=== PATIENT | male | born 1950 | race Caucasian/White ===

== ENCOUNTER → 2022-08-27 12:52 | Outpatient (REF) | payer OTHER, SELFPAY | LOC: WOUND 12:52 | PROVIDERS: ATTENDING PHYSICIAN Surgery; REFERRING PHYSICIAN Family Medicine | DX: T81.31XA Disruption of external operation (surgical) wound, not elsewhere classified, initial encounter (principal); L97.812 Non-pressure chronic ulcer of other part of right lower leg with fat layer exposed; I73.9 Peripheral vascular disease, unspecified; F17.210 Nicotine dependence, cigarettes, uncomplicated; M27.2 Inflammatory conditions of jaws; F10.11 Alcohol abuse, in remission; I10 Essential (primary) hypertension; Y83.8 Other surgical procedures as the cause of abnormal reaction of the patient, or of later complication, without mention of misadventure at the time of the procedure | CPT/HCPCS: 11042; 97597 ==

== ENCOUNTER → 2022-09-10 12:53 | Outpatient (REF) | payer OTHER, SELFPAY | LOC: WOUND 12:53 | PROVIDERS: ATTENDING PHYSICIAN Surgery; REFERRING PHYSICIAN Family Medicine | DX: T81.31XA Disruption of external operation (surgical) wound, not elsewhere classified, initial encounter (principal); L97.812 Non-pressure chronic ulcer of other part of right lower leg with fat layer exposed; I73.9 Peripheral vascular disease, unspecified; Y83.8 Other surgical procedures as the cause of abnormal reaction of the patient, or of later complication, without mention of misadventure at the time of the procedure; F17.210 Nicotine dependence, cigarettes, uncomplicated; M27.2 Inflammatory conditions of jaws; F10.11 Alcohol abuse, in remission; I10 Essential (primary) hypertension | CPT/HCPCS: 11042; 11045; 97597 ==

== ENCOUNTER → 2022-10-08 13:07 | Outpatient (REF) | payer OTHER, SELFPAY | LOC: WOUND 13:07 | PROVIDERS: ATTENDING PHYSICIAN Surgery; REFERRING PHYSICIAN Family Medicine | DX: T81.31XA Disruption of external operation (surgical) wound, not elsewhere classified, initial encounter (principal); L97.812 Non-pressure chronic ulcer of other part of right lower leg with fat layer exposed; I73.9 Peripheral vascular disease, unspecified; F17.210 Nicotine dependence, cigarettes, uncomplicated; M27.2 Inflammatory conditions of jaws; F10.11 Alcohol abuse, in remission; I10 Essential (primary) hypertension | CPT/HCPCS: 97597; 97598 ==

== ENCOUNTER → 2022-11-05 11:00 | Outpatient (REF) | payer OTHER, SELFPAY | LOC: WOUND 11:00 | PROVIDERS: ATTENDING PHYSICIAN Surgery; REFERRING PHYSICIAN Family Medicine | DX: T81.31XS Disruption of external operation (surgical) wound, not elsewhere classified, sequela (principal); L97.812 Non-pressure chronic ulcer of other part of right lower leg with fat layer exposed; I73.9 Peripheral vascular disease, unspecified; F17.210 Nicotine dependence, cigarettes, uncomplicated; M27.2 Inflammatory conditions of jaws; F10.11 Alcohol abuse, in remission; I10 Essential (primary) hypertension; X58.XXXA Exposure to other specified factors, initial encounter | CPT/HCPCS: 11042; 11045 ==

== ENCOUNTER → 2022-11-18 12:17 | Outpatient (REF) | payer OTHER, SELFPAY | LOC: WOUND 12:17 | PROVIDERS: ATTENDING PHYSICIAN Surgery; REFERRING PHYSICIAN Family Medicine | DX: T81.31XA Disruption of external operation (surgical) wound, not elsewhere classified, initial encounter (principal); L97.812 Non-pressure chronic ulcer of other part of right lower leg with fat layer exposed; I73.9 Peripheral vascular disease, unspecified; F17.210 Nicotine dependence, cigarettes, uncomplicated; M27.2 Inflammatory conditions of jaws; F10.11 Alcohol abuse, in remission; I10 Essential (primary) hypertension; X58.XXXA Exposure to other specified factors, initial encounter | CPT/HCPCS: 11042; 11045 ==

== ENCOUNTER → 2023-02-11 11:59 | Outpatient (REF) | payer OTHER, SELFPAY | LOC: WOUND 11:59 | PROVIDERS: ATTENDING PHYSICIAN Surgery; REFERRING PHYSICIAN Family Medicine | DX: T81.31XA Disruption of external operation (surgical) wound, not elsewhere classified, initial encounter (principal); L97.812 Non-pressure chronic ulcer of other part of right lower leg with fat layer exposed; I73.9 Peripheral vascular disease, unspecified; F17.210 Nicotine dependence, cigarettes, uncomplicated; I10 Essential (primary) hypertension; I87.2 Venous insufficiency (chronic) (peripheral); F10.11 Alcohol abuse, in remission; Y83.8 Other surgical procedures as the cause of abnormal reaction of the patient, or of later complication, without mention of misadventure at the time of the procedure | CPT/HCPCS: 11042; 11045 ==

== ENCOUNTER → 2023-03-17 10:55 | Outpatient (REF) | payer OTHER, SELFPAY | LOC: WOUND 10:55 | PROVIDERS: ATTENDING PHYSICIAN Surgery; REFERRING PHYSICIAN Family Medicine | DX: T81.31XS Disruption of external operation (surgical) wound, not elsewhere classified, sequela (principal); L97.812 Non-pressure chronic ulcer of other part of right lower leg with fat layer exposed; I73.9 Peripheral vascular disease, unspecified; F17.210 Nicotine dependence, cigarettes, uncomplicated; M27.2 Inflammatory conditions of jaws; I10 Essential (primary) hypertension; I87.2 Venous insufficiency (chronic) (peripheral); X58.XXXA Exposure to other specified factors, initial encounter | CPT/HCPCS: 11042; 11045 ==

== ENCOUNTER → 2023-03-31 10:55 | Outpatient (REF) | payer OTHER, SELFPAY | LOC: WOUND 10:55 | PROVIDERS: ATTENDING PHYSICIAN Surgery; FAMILY PHYSICIAN Family Medicine | DX: T81.31XA Disruption of external operation (surgical) wound, not elsewhere classified, initial encounter (principal); L97.812 Non-pressure chronic ulcer of other part of right lower leg with fat layer exposed; I73.9 Peripheral vascular disease, unspecified; F17.210 Nicotine dependence, cigarettes, uncomplicated; M27.2 Inflammatory conditions of jaws; F10.11 Alcohol abuse, in remission; I10 Essential (primary) hypertension; I87.2 Venous insufficiency (chronic) (peripheral); X58.XXXA Exposure to other specified factors, initial encounter | CPT/HCPCS: 99213 ==

== ENCOUNTER → 2023-04-14 11:04 | Outpatient (REF) | payer OTHER, SELFPAY | LOC: WOUND 11:04 | PROVIDERS: ATTENDING PHYSICIAN Surgery; FAMILY PHYSICIAN Family Medicine | DX: T81.31XA Disruption of external operation (surgical) wound, not elsewhere classified, initial encounter (principal); L97.812 Non-pressure chronic ulcer of other part of right lower leg with fat layer exposed; I73.9 Peripheral vascular disease, unspecified; M27.2 Inflammatory conditions of jaws; I10 Essential (primary) hypertension; I87.2 Venous insufficiency (chronic) (peripheral); X58.XXXA Exposure to other specified factors, initial encounter; F17.210 Nicotine dependence, cigarettes, uncomplicated; F10.11 Alcohol abuse, in remission | CPT/HCPCS: 11042; 11045; 87070; 87075; 87147; 87186; 87205; 99406 ==

== ENCOUNTER → 2023-04-21 11:02 | Outpatient (REF) | payer OTHER, SELFPAY | LOC: WOUND 11:02 | PROVIDERS: ATTENDING PHYSICIAN Surgery; FAMILY PHYSICIAN Family Medicine | DX: T81.31XA Disruption of external operation (surgical) wound, not elsewhere classified, initial encounter (principal); L97.812 Non-pressure chronic ulcer of other part of right lower leg with fat layer exposed; I73.9 Peripheral vascular disease, unspecified; L08.9 Local infection of the skin and subcutaneous tissue, unspecified; F17.210 Nicotine dependence, cigarettes, uncomplicated; M27.2 Inflammatory conditions of jaws; T14.8XXA Other injury of unspecified body region, initial encounter; F10.11 Alcohol abuse, in remission; I10 Essential (primary) hypertension; I87.2 Venous insufficiency (chronic) (peripheral); X58.XXXA Exposure to other specified factors, initial encounter | CPT/HCPCS: 99213 ==

== ENCOUNTER → 2023-04-28 11:05 | Outpatient (REF) | payer OTHER, SELFPAY | LOC: WOUND 11:05 | PROVIDERS: ATTENDING PHYSICIAN Surgery; FAMILY PHYSICIAN Family Medicine | DX: T81.31XA Disruption of external operation (surgical) wound, not elsewhere classified, initial encounter (principal); L97.812 Non-pressure chronic ulcer of other part of right lower leg with fat layer exposed; I73.9 Peripheral vascular disease, unspecified; L08.9 Local infection of the skin and subcutaneous tissue, unspecified; M27.2 Inflammatory conditions of jaws; T14.8XXA Other injury of unspecified body region, initial encounter; X58.XXXA Exposure to other specified factors, initial encounter; I10 Essential (primary) hypertension; I87.2 Venous insufficiency (chronic) (peripheral); F17.210 Nicotine dependence, cigarettes, uncomplicated; F10.11 Alcohol abuse, in remission | CPT/HCPCS: 99212 ==

== ENCOUNTER 2023-05-05 01:44 | Inpatient (IN) | payer OTHER, SELFPAY ==
[2023-05-04 19:38] VITALS: BP 111/69
[2023-05-04 19:45] VITALS: BP 111/69
[2023-05-04 19:47] VITALS: BMI 17.2
[2023-05-04 20:00] VITALS: BP 110/72
[2023-05-04 20:01] LABS: % Basophils 0.6 % (0-2); % Eosinophils 0.6 % (0-6); % Immature Granulocytes 0.4 % (0-0.5); % Lymphocytes 7.4 % (20.5-51.1); % Monocytes 7.1 % (1.7-9.3); % Neutrophils 83.9 % (42.2-75.2); Absolute Basophils 0.1 10^3/uL (0-0.2); Absolute Eosinophils 0.1 10^3/uL (0-0.7); Absolute Immature Granulocytes 0.1 10^3/uL (0-0.05); Absolute Lymphocytes 0.9 10^3/uL (1.2-3.4); Absolute Monocytes 0.9 10^3/uL (0.1-0.6); Hematocrit 33.4 % (39.0-52.0); Hemoglobin 11.1 g/dL (13.0-18.0); Mean Corp Hgb Conc. 33.2 g/dL (33.0-37.0); Mean Corpuscular Hgb 28.8 pg (27.0-31.0); Mean Corpuscular Volume 86.8 fL (80.0-94.0); Mean Platelet Volume 8.3 fL (7.4-10.4); Nucleated Red Blood Cells % 0 % (-); Platelet Count 733 10^3/uL (130-400); Red Blood Cell Count 3.85 10^6/uL (4.70-6.10); Red Cell Dist. Width 17.2 % (11.5-14.5)
[2023-05-04 20:10] LABS: ALT (SGPT) 22 U/L (0-50); AST (SGOT) 40 U/L (17-59); Albumin 3.6 g/dl (3.5-5.0); Alkaline Phosphatase 64 U/L (38-126); Blood Urea Nitrogen 41 mg/dl (9-20); Calcium 9.1 mg/dl (8.4-10.2); Carbon Dioxide 27 mmol/L (22-30); Chloride 93 mmol/L (98-107); Estimated Creatinine Clearance 52 ml/min; Glucose 109 mg/dl (70-99); Potassium 4.4 mmol/L (3.5-5.1); Sodium 130 mmol/L (135-145); Total Bilirubin 0.2 mg/dl (0.2-1.3); eGFR > 60.00
--- NOTE | 2023-05-04 21:54 | ED.GENMED ---
History of Present Illness
General
Chief Complaint: Jaw Pain
Time Seen by Provider: 05/04/23 21:05
Travel History
Have you had any contact with someone who has COVID-19?: No
Do you have any symptoms of coronavirus? Fever > 100 degrees, chills, cough, shortness of breath, sore throat, loss of taste or smell, muscle aches, or headache?: No
History of Present Illness
History of Present Illness:
72-year-old male with history of COPD and 'jaw cancer' presents to the emergency department for evaluation of numerous complaints. He apparently lives at home with his and his son, the patient states that they 'do not take care of me'. He
apparently called his daughter, with whom he has very little relationship, today requesting help and police became involved in the situation. He states he feels as though he cannot care for himself adequately at home and is requesting to go to
rehab. In triage the patient requested hospice care however he does not aware of what hospice care truly is. In regards to his jaw cancer he states he was treated at both [facility] with tumor excision and local
radiation, had bone grafting performed as well. Patient states he is followed up as recently as 6 months ago with [place] [facility] and informs me that he is disease-free (I have no records to confirm this). He is not currently undergoing any treatments
for his cancer. Overall he only takes medications for chronic pain. Does follow with outpatient wound care through this hospital for a chronic wound to the right lower extremity that he states is from his prior bone graft. He denies any pain or
infection concerns associated with this. Denies any fevers or chills. He does note that he has a persistent cough. States that he cannot eat due to severe pain in the jaw when chewing however denies any swallowing difficulties. Does typically
ambulate himself using a cane around his house and is seemingly independent in regards to activities of daily living
Past History
Past History
ED Past Medical History: Cancer, COPD, HTN, Hypercholesterolemia, Psychiatric (Generalized anxiety disorder) and Other (Arthritis, Ulcers)
ED Past Surgical History: Orthopedic (Knee replacement, spinal fusion)
Social History
Tobacco: Smoker
Alcohol: Daily
Drug: None
Personal:
Living: with family
Family History
Family History: CAD
Review of Systems
Review of Systems
Allergies reviewed?: Yes
All Other Systems: ROS reviewed and negative except as documented in HPI and ROS
Phy Exam
Physical Exam
Physical Exam:
GEN: Thin and frail appearing, cachectic
Eyes: PERRLA, EOMs intact, no scleral icterus
HENT: NCAT, oral mucosa dry; jaw abnormality secondary to prior surgery
Lungs: Coarse wet cough, rhonchi heard at the right base
Cardiac: Slightly tachycardic, regular
Abdomen: S, NT, ND, NABS, no masses or hepatosplenomegaly
Neuro: AO x 3
MSK: No gross deformity or ecchymosis. No edema. No digital clubbing
Skin: No rashes, petechiae. Normal color, no pallor or jaundice.
Psych: Calm, cooperative, proper hygiene
Course
Orders/Labs/Results
Orders:
Orders
05/04/23 19:50
Alcohol Urgent
Complete Blood Count/With Diff Urgent
Comprehensive Metabolic Panel Urgent
05/04/23 21:53
Add On- LAB Urgent
Tests Added?: alcohol
05/04/23 21:56
Lorazepam [Ativan] 1 mg PO NOW STA
05/04/23 23:20
Albuterol [ProAIR HFA INHALER] 2 puff INH R Q4HPRN PRN
CR Chest - 2 Views Urgent
Comment:
Reason For Exam: cough
05/05/23 00:06
0.9% Sodium Chloride 1000 ml [Nss] 1,000 ml IV BOLUS
Piperacillin/Tazo 3.375 Gram [Zosyn] 3.375 gram in 50 ml IV NOW
Speech Screening from Con Routine
05/05/23 00:58
Lactic Acid Urgent
Procalcitonin Urgent
PCT Algorithmm Indication: Respiratory
Blood Culture Q30M
JOSE Source: Blood/Venous
Specimen Description:
05/05/23 01:08
Admit/Transfer Patient As Directed
Co-Sign Provider:
Level of Care: Inpatient admission
Assign to:: Telemetry
Physician / Group: Lasha
Diagnosis: RLL Pneumonia
Reason for Telemetry: Arrhythmia
Date to Stop Telemetry: 05/08/23
Time to Stop Telemetry: 11:00
Reason for Hospitalization: RLL Pneumonia
Expected length of stay greater than two midnights?: Yes
ELOS- Estimated Length of Stay in days: 3
I certify the patient meets the requirements for IP care: Yes
05/05/23 01:09
Code Status As Directed
Resuscitation Status: Full Code
05/05/23 01:12
Blood Culture Q30M
JOSE Source: Blood/Venous
Specimen Description:
05/08/23 11:00
DC Protocol for Telemetry ONCE
Abnormal Lab Results
05/04/23
19:50
WBC 12.0 H 10^3/uL
(4.8-10.8)
RBC 3.85 L 10^6/uL
(4.70-6.10)
Hgb 11.1 L g/dL
(13.0-18.0)
Hct 33.4 L %
(39.0-52.0)
RDW 17.2 H %
(11.5-14.5)
Plt Count 733 H 10^3/uL
(130-400)
Abs Immat Gran (auto) 0.1 H 10^3/uL
(0-0.05)
Absolute Neuts (auto) 10.0 H 10^3/uL
(1.4-6.5)
Absolute Lymphs (auto) 0.9 L 10^3/uL
(1.2-3.4)
Absolute Monos (auto) 0.9 H 10^3/uL
(0.1-0.6)
Neutrophils % 83.9 H %
(42.2-75.2)
Lymphocytes % 7.4 L %
(20.5-51.1)
Sodium 130 L mmol/L
(135-145)
Chloride 93 L mmol/L
(98-107)
BUN 41 H mg/dl
(9-20)
Glucose 109 H mg/dl
(70-99)
05/04/23 19:50
05/04/23 19:50
Vital Signs
Initial and Last Documented VS:
Initial Vital Signs
Pulse Resp BP
103 14 111/69
05/04/23 19:38 05/04/23 19:38 05/04/23 19:38
Last Documented Vital Signs
Temp Pulse Resp BP Pulse Ox
97.7 F 105 19 117/74 94
05/04/23 19:45 05/04/23 22:00 05/04/23 22:00 05/05/23 01:11 05/05/23 01:11
MDM/Problems Addressed
MDM/Problems Addressed:
After lengthy discussion with the patient and his daughter regarding his lack of safety at home, I did agree to keep the patient in the hospital for case management and PT/OT evaluations. Ultimately on my evaluation I do not find that the patient
is profoundly malnourished or functionally deconditioned. He does not feel her thin but he is able to ambulate under his own power to the restroom and is able to feed himself and use the urinal without difficulty. Certainly do not feel that he
warrants rehab but could benefit from home physical therapy. He has noted to have a coarse wet cough on exam with right lower lobe rhonchi, follow-up chest x-ray does show right lower lobe density suggestive of pneumonia. Concerning for aspiration
in the context of the patient's difficulty with chewing and eating. Will admit for IV antibiotics
*Critical Care Note
Total Time (30-74mins, 75-104mins- exclusive of procedures): Not Applicable
ED Attending Note
-
Portions of this chart may have been created with voice recognition software.� Occasional wrong word or��sound alike� substitutions may have occurred due to the inherent limitations of voice recognition software.
Discharge Plan
Departure
Patient Disposition: Admit
Date of Disposition: 05/05/23
Time of Disposition: 00:26
Admit to: Med/Surg
Presentation/result/management discussed w/ accepting MD/DO: Hospitalist
Discharge Problem:
Right lower lobe pneumonia
Prescriptions:
No Action
morphine 15 MG tablet
7.5 - 15 mg PO Q4H PRN (Reason: severe pain)
Patient Comments:
05/04/23: last filled 04/02/23, 60 tabs for 10 days from [facility]
sennosides [Senna Laxative] 8.6 mg Tablet
8.6 mg PO DAILY
gabapentin 300 mg Capsule
300 mg PO TID
lorazepam 1 mg Tablet
1 mg PO BID PRN (Reason: anxiety)
Patient Comments:
05/04/2023: last filled 01/22/23, 60 tabs for 30 days from [facility]
morphine 30 mg tablet extended release
30 mg PO BID
Patient Comments:
05/04/2023: last filled 03/09/22, 60 tabs for 30 days from [facility]
sulfamethoxazole-trimethoprim 800-160 mg tablet
1 tab PO BID
hydromorphone 2 mg Tablet
2 mg PO Q6H PRN (Reason: wound vac mike)
Patient Comments:
05/04/2023: last filled 11/08/21, 5 tabs for 2 days from [facility]
hydroxyzine HCl 25 mg tablet
25 mg PO Q8H PRN (Reason: anxiety)
Referrals:
Werner Hansen MD [Family Provider] -
Interventions
Interventions:
*General Assessment Last Done: 05/04/23 23:34
*Neglect/Abuse Screening Last Done: 05/04/23 23:35
ED- Fall Risk Assessment Last Done: 05/04/23 19:49
*ED COVID-19 Vaccine History Last Done: 05/04/23 19:48
ED-EENT Assessment Last Done: 05/04/23 23:15
ED- Cardiac Assessment Last Done: 05/04/23 23:15
[2023-05-04 22:00] VITALS: BP 153/92
[2023-05-04 22:30] LABS: Alcohol 92 mg/dl
[2023-05-04] MEDS: ATIVAN 1 MG PO (22:37)
[2023-05-04 23:08] VITALS: BP 121/69
[2023-05-04 23:56] VITALS: BP 107/88
[2023-05-05] VITALS (10 sets, daily range): BP systolic 95–155; BP diastolic 70–104; PULSE 102–115; O2SAT 93; BMI 17.0
[2023-05-05] MEDS: ProAIR HFA INHALER 2 PUFF INH (00:01)
--- NOTE | 2023-05-05 01:13 | HPS.HSE ---
Family Physician
-
Family Physician: Werenr Hansen
Chief Complaint
-
Failure to Thrive
History of Present Illness
Patient is a 72y M with PMH significant for osteonecrosis of the jaw, ASCVD and COPD who presents to ED complaining of general failure to thrive. Patient currently lives at home with his and his adult son. He states that he cannot manage
at home. His is also ill with cancer. There is suspicion of prescription diversion. Patient presents this evening with feeling generally weak and fatigued. He has no specific complaints, but does have a largely positive review of systems.
Patient notes occasional difficulty swallowing and some coughing / choking when eating. He has occasional SOB and cough and notes that he has COPD. He denies any complaints.
He is followed by Wound Care at for a slowly healing RLE graft harvest site. He was recently started on Bactrim DS BID for this wound / associated cellulitis and notes that this 'tore me up' in regards to heartburn and GI distress.
Medical History
Past Medical History
Past Medical History: Reports Other
Additional Past Medical History:
ASCVD / PAD
Hypertension
Oral Cancer
Jaw Osteonecrosis
Chronic Pain Syndrome
Anxiety / Depression
COPD
Past Surgical History: Reports Other
Additional Past Surgical History:
Bilateral Knee Surgeries
Spinal Fusion
Oral Cancer Excision
Left Jaw Reconstruction
RLE Bone [place]
RLE Bypass
Social History
Tobacco: Smoker (Current every day smoker. 1/2 ppd. > 60 pack years total use.)
Alcohol: Occasional (Patient reports alcohol 1-2 times per week. Prior history of more frequent / higher volume alcohol use. Last drink 2 days ago per patient. Positive alcohol level this evening.)
Personal:
Living: With Family
Family History
Family History: Not pertinent
Allergies / Home Medications
Allergies reflects when Allergies were last updated in [employer].
Home Medications with original date entered in [employer]
Allergy/Medication List:
Allergies
Allergy/AdvReac Type Severity Reaction Status Date / Time
BALA Inhibitors Allergy upset Verified 05/04/23 19:48
[Bala Inhibitors] stomach
atorvastatin calcium Allergy upset Verified 05/04/23 19:48
[From Lipitor] stomach
lisinopril Allergy Rash Verified 05/04/23 19:48
Home Medications
morphine 15 mg immediate release tablet 7.5 - 15 mg PO Q4H PRN severe pain 06/15/20
gabapentin 300 mg capsule 300 mg PO TID Pain 09/09/21
sennosides 8.6 mg tablet (Senna Laxative) 8.6 mg PO DAILY 09/09/21
lorazepam 1 mg tablet 1 mg PO BID PRN anxiety 09/11/21
morphine 30 mg tablet,extended release 30 mg PO BID Pain 11/05/21
hydromorphone 2 mg tablet 2 mg PO Q6H PRN wound vac mike 05/04/23
hydroxyzine HCl 25 mg tablet 25 mg PO Q8H PRN anxiety 05/04/23
sulfamethoxazole 800 mg-trimethoprim 160 mg tablet 1 tab PO BID 05/04/23
Review of Systems
-
History Source: Patient
A 12 point ROS was completed and negative except as noted: Yes
Constitutional: Reports Fatigue; Denies Fever or Chills
EENT: Reports Sore Throat and Mouth Pain
Respiratory: Reports Cough and Trouble Breathing
Cardiac: Denies Chest Pain or Palpitations
Abdomen/GI: Reports Other (Heartburn.); Denies Abdominal Pain, Nausea, Vomiting or Diarrhea
: Denies Dysuria or Frequency
Musculoskeletal: Denies Joint Pain or Edema
Skin: Reports Other (RLE Wound)
Psych: Reports Depression; Denies Anxiety
Physical Exam
Vital Signs
Vital Signs
Temp Pulse Resp BP Pulse Ox
97.7 F 105 19 113/71 91
05/04/23 19:45 05/04/23 22:00 05/04/23 22:00 05/05/23 00:00 05/05/23 00:00
Physical Exam
General: Other (Frail, chronically ill-appearing 72y M in no acute distress.)
HEENT: Moist mucous membranes and Other (L mandible deformity s/p surgery.)
Respiratory: Other (Few coarse breath sounds at R base. No wheeze / rales.)
Cardiac: S1/S2 and Regular Rhythm; No Murmur
GI: Soft, Non Tender, Non Distended and Normal Bowel Sounds
Musculoskeletal: No Clubbing, No Cyanosis and No Edema
Skin: Other (Wound over lateral aspect of the R lower leg. Appears to be healing quite nicely without erythema, induration, bleeding, etc.)
Neuro: AO x 3
Laboratory Results
-
05/04/23 19:50
05/04/23 19:50
Laboratory Results
Total Bilirubin 0.2 mg/dl (0.2-1.3) 05/04/23 19:50
AST 40 U/L (17-59) 05/04/23 19:50
ALT 22 U/L (0-50) 05/04/23 19:50
Alkaline Phosphatase 64 U/L (38-126) 05/04/23 19:50
Impression/Plan
-
A/P: Patient is a 72y M with PMH significant for oral cancer, osteonecrosis of the jaw, COPD and PAD who presents to ED complaining of 'feeling worn down'.
RLL Pneumonia - Possible Aspiration
- Admit for further evaluation and treatment.
- Mild leukocytosis and abnormal lung sounds. Admitted aspiration events during meals per patient.
- Cover with IV abx for now.
- Check procalcitonin.
- Supportive care including nebs, chest PT, etc
- Formal Speech evaluation.
- Aspiration precautions.
COPD without Acute Exacerbation
- Stable. No active wheezing on exam.
- Continue inhaled medications.
- Follow for any new / worsening symptoms.
- Encourage smoking cessation.
RLE Wound
- Stable. This appears to be healing quite well.
- No evidence of associated infection.
- Wound Care eval for continued local care.
- Hold further Bactrim for now given GI issues.
- Continue follow-up with Wound Care as an outpatient.
Osteonecrosis of the Jaw
Oral Cancer
- s/p surgery, reconstruction, radiation treatments
- Certainly higher risk for aspiration issues as noted above.
- No new / acute issues from jaw / oral perspective.
ASCVD
- Documented PAD s/p RLE bypass surgery.
- Not presently on ASA, statin, etc. Some prior history of GI bleeding.
- Follow-up with Vascular Surgery as an outpatient.
- As noted, wound on the RLE appears to be healing quite well.
Chronic Pain Syndrome
Chronic Opioid Dependence
- Stable. Continue long-acting opioids + short acting breakthrough.
- Adjust regimen as needed for pain control / least total amount of narcotic.
- Case Management evaluation as patient may benefit from placement given home issues.
DVT Prophylaxis: Subcut Heparin
Code Status: Full
[2023-05-05] MEDS: NSS 1000 IV (01:15)
[2023-05-05] MEDS: ZOSYN 50 IV ×3 (01:17→12:51)
[2023-05-05 01:33] LABS: Procalcitonin 0.14 ng/ml (0.0-0.25)
[2023-05-05 02:13] LABS: Lactic Acid 2.4 mmol/L (0.7-2.0)
[2023-05-05] MEDS: LR 1000 IV ×2 (04:42→14:16)
--- NOTE | 2023-05-05 05:44 | PTCARENOTE ---
Patient received in bed from ED at 0400. Patient ambulated from stretcher to bed. Pt offers no complaints at this time. IVF infusing per order. Patient oriented to room and call snow. Snow low, call snow placed within reach.
[2023-05-05] MEDS: DUONEB 3 ML INH (07:39)
[2023-05-05] MEDS: PULMICORT 0.5 MG INH (07:39)
[2023-05-05] MEDS: HEPARIN 5000 UNITS SC ×2 (08:57→20:13)
[2023-05-05] MEDS: FOLVITE 1 MG PO ×2 (08:57→14:16)
[2023-05-05] MEDS: COLACE 100 MG PO ×2 (08:57→20:11)
[2023-05-05] MEDS: NEURONTIN 300 MG PO ×3 (08:57→21:30)
[2023-05-05] MEDS: MS CONTIN (EXTENDED RELEASE) 30 MG PO ×2 (09:04→20:13)
[2023-05-05] MEDS: THIAMINE INJECTION 255 MG IV ×3 (09:15→23:19)
--- NOTE | 2023-05-05 09:31 | CON.ONC ---
Addendum entered and electronically signed by Pat Ritchie MD 05/05/23 15:34:
72 yo w/ h/o head/neck cancer, currently GINA but treatment complicated by ONJ, swallowing difficulty, ?aspiration, now admitted with failure to thrive and inability of family to care for him.
Noted to have chronic thrombocytosis.
This can be seen in chronic inflammation/infection.
Will check iron studies, EPO and Jak2 to evaluate further.
Will likely need outpatient heme f/u to review results and plan further w/u if needed.
Original Note:
Impression
Impression
Acute on chronic thrombocytosis
Acute leukocytosis
Iron deficiency
RLL Pneumonia
ETOH use
Current smoker
Hx head and neck cancer, surgical resection and XRT ([facility])
Hx osteonecrosis of jaw
Plan
Plan
05/04 Platelets 637
Monitor CBC daily
Additional lab work has been ordered and pending
B12, folate, iron panel, JAK2, EPO level
IV iron would not be appropriate in the setting of acute infection
MSAS protocol
Treatment of PNA per primary team
Reactive thrombocytosis can be seen in the setting of iron deficiency, acute infection, alcohol consumption, or inflammation.
Await JAK2. Continue supportive care. We will follow.
Patient History
History of Present Illness
Mansoor Luther is a 72 year old male with history of oral, head, and neck cancer treated surgically at [facility] with Dr. Garcia followed by radiation with Dr. Cruz. He was last seen at [place] in [address] Rubin for a second Oncology opinion.
Recommendations were provided per our records. Patient ultimately returned to [facility]. We are consulted at this time for elevated platelets. He presented to the ER with weakness, fatigue, and generalized failure to thrive. is also acutely ill
with cancer. His son is having difficulty taking care of him at home. Patient has had history of elevated platelets since June 2020 per records with an isolated incidence in 2009. (Baseline platelets 220-360 in 2014). Patient also has history of iron
deficiency and B12/folate deficiency. He is a poor historian.
Past-Medical/Surgical History
Oral cancer (05/2019)
Current 1/2 ppd smoker >60 years
Weekly/daily? ETOH use
Osteonecrosis of jaw s/p resection
Chronic pain syndrome
COPD/asthma
Anxiety/Depression
Hypercholesterolemia
Bilateral Knee Surgeries
Spinal Fusion
Left Jaw Reconstruction
RLE Bone [place]
RLE Bypass
Patient Medication
Medication Instructions Recorded Confirmed Last Taken Type
morphine 15 mg immediate release 7.5 - 15 mg PO Q4H PRN severe pain 06/15/20 05/04/23 10/20/21 18:00 History
tablet
gabapentin 300 mg capsule 300 mg PO TID Pain 09/09/21 05/04/23 10/20/21 18:00 History
sennosides 8.6 mg tablet (Senna 8.6 mg PO DAILY 09/09/21 05/04/23 2 Weeks Ago History
Laxative) ~10/07/21
lorazepam 1 mg tablet 1 mg PO BID PRN anxiety 09/11/21 05/04/23 10/20/21 22:00 History
morphine 30 mg tablet,extended 30 mg PO BID Pain 11/05/21 05/04/23 Unknown History
release
hydromorphone 2 mg tablet 2 mg PO Q6H PRN wound vac mike 05/04/23 05/04/23 Unknown History
hydroxyzine HCl 25 mg tablet 25 mg PO Q8H PRN anxiety 05/04/23 05/04/23 Unknown History
sulfamethoxazole 800 1 tab PO BID 05/04/23 05/04/23 Unknown History
mg-trimethoprim 160 mg tablet
Active Medications
Generic Name Dose Route Start Last Admin
Trade Name Freq PRN Reason Stop Dose Admin
Acetaminophen 650 mg 05/05/23 03:57
Acetaminophen 325 Mg Tablet PO 06/02/23 03:56
Q4HPRN PRN
Mild Pain / Temp > 101
Albuterol 2 puff 05/04/23 23:20 05/05/23 00:01
Albuterol Hfa [90 Mcg/Dose] Inhaler INH 2 puff
R Q4HPRN PRN Administration
shortness of breath
Protocol
Albuterol Sulfate 2.5 mg 05/05/23 03:57
Albuterol Nebs 2.5 Mg/3 Ml Ampul INH
R Q4HPRN PRN
shortness of breath
Protocol
Albuterol/Ipratropium 3 ml 05/05/23 08:00 05/05/23 07:39
Ipratropium 0.5/Albuterol 3 Mg (3 Ml Ampul) INH 3 ml
R QID DAWNA Administration
Protocol
Budesonide 0.5 mg 05/05/23 08:00 05/05/23 07:39
Budesonide (Pulmicort Respules) 0.5 Mg/2 Ml INH 0.5 mg
R BID DAWNA Administration
Protocol
Docusate Sodium 100 mg 05/05/23 08:00 05/05/23 08:57
Docusate Sodium 100 Mg Capsule PO 06/02/23 07:59 100 mg
BID DAWNA Administration
Folic Acid 1 mg 05/05/23 08:00 05/05/23 08:57
Folic Acid 1 Mg Tablet PO 06/02/23 07:59 1 mg
DAILY DAWNA Administration
Gabapentin 300 mg 05/05/23 08:00 05/05/23 08:57
Gabapentin 300 Mg Capsule PO 06/02/23 07:59 300 mg
TID DAWNA Administration
Heparin Sodium 5,000 units 05/05/23 08:00 05/05/23 08:57
Heparin 5,000 Units/Ml 1 Ml Vial SC 06/02/23 07:59 5,000 units
Q12 DAWNA Administration
Hydromorphone HCl 0.5 mg 05/05/23 03:57
Hydromorphone 0.5 Mg/0.5 Ml Syringe IV 05/19/23 03:56
Q4HPRN PRN
severe pain
Hydroxyzine HCl 25 mg 05/05/23 03:57
Hydroxyzine 25 Mg Tablet PO 06/02/23 03:56
Q8H PRN
anxiety
Piperacillin Sod/Tazobactam Sod 3.375 gram in 50 mls @ 100 mls/hr 05/05/23 08:00 05/05/23 08:58
Zosyn IV 50 mls
Q6H DAWNA Administration
Lactated Ringer's 1,000 mls @ 100 mls/hr 05/05/23 03:57 05/05/23 04:42
Lr IV 1,000 mls
.Q10H DAWNA Administration
Thiamine HCl 500 mg/ Sodium 255 mls @ 255 mls/hr 05/05/23 08:00 05/05/23 09:15
Chloride IV 05/08/23 00:59 255 mls
Q8 DAWNA Administration
Lorazepam 1 mg 05/05/23 04:53
Lorazepam 1 Mg Tablet PO 06/02/23 04:52
Q2HPRN PRN
MSAS 5-7
Lorazepam 1 mg 05/05/23 04:53
Lorazepam 2 Mg/Ml Vial IV 06/02/23 04:52
Q1HPRN PRN
MSAS 8-11
Lorazepam 2 mg 05/05/23 04:53
Lorazepam 2 Mg/Ml Vial IV 06/02/23 04:52
Q1HPRN PRN
MSAS > 11
Morphine Sulfate 30 mg 05/05/23 08:00 05/05/23 09:04
Morphine 30 Mg Extended Release Tablet PO 05/19/23 07:59 30 mg
BID DAWNA Administration
Ondansetron HCl 4 mg 05/05/23 03:57
Ondansetron 4 Mg/2 Ml Vial IV 06/02/23 03:56
Q6HPRN PRN
nausea and vomiting
Sennosides 17.2 mg 05/05/23 22:00
Sennosides (Senokot) 8.6 Mg Tablet PO 06/02/23 21:59
HS DAWNA
Sodium Chloride 0 flush 05/05/23 05:00
Sodium Chloride 0.9% (Flush) Syringe IV 06/02/23 04:59
PER PROTOCOL DAWNA
Thiamine HCl 100 mg 05/08/23 08:00
Thiamine 100 Mg Tablet PO 06/05/23 07:59
BID DAWNA
Review of Systems
-
Unable to obtain full review of systems at this time due to: Dementia and Acuity
History Source: Patient, Physician, Coordinated Provider and Records
Constitutional: Reports No Symptoms
EENT: Reports No Symptoms
Respiratory: Reports No Symptoms
GI: Reports No Symptoms
Breast: Reports N/A
Musculoskeletal: Reports No Symptoms
Skin: Reports No Symptoms
Neuro: Reports No Symptoms
Endocrine: Reports No Symptoms
Hematologic/Lymphatic: Reports No Symptoms
Allergy / Immunology: Reports No Symptoms
Psych: Reports No Symptoms
Physical Exam
-
patient is very frustrated upon evaluation this morning... 'I want to eat, I'm starving'. denies pain.
General: Appears Chronically Ill and Cachetic
HEENT: Other (mandible deformity s/p resection/surgery)
Cardiology: S1, S2 and Other (tachycardia)
Pulmonary: Clear and Other (diminished, poor effort)
GI: Normal Bowel Sounds
Genito-Urinary: Deferred by me
Musculoskeletal: No Edema
Extremities: Pulses Present
Skin: Warm and Dry
Psych: Agitated
Labs
Lab Results
WBC 12.0 10^3/uL (4.8-10.8) H 05/04/23 19:50
RBC 3.85 10^6/uL (4.70-6.10) L 05/04/23 19:50
Hgb 11.1 g/dL (13.0-18.0) L 05/04/23 19:50
Hct 33.4 % (39.0-52.0) L 05/04/23 19:50
MCV 86.8 fL (80.0-94.0) 05/04/23 19:50
MCH 28.8 pg (27.0-31.0) 05/04/23 19:50
MCHC 33.2 g/dL (33.0-37.0) 05/04/23 19:50
RDW 17.2 % (11.5-14.5) H 05/04/23 19:50
Plt Count 733 10^3/uL (130-400) H 05/04/23 19:50
MPV 8.3 fL (7.4-10.4) 05/04/23 19:50
Abs Immat Gran (auto) 0.1 10^3/uL (0-0.05) H 05/04/23 19:50
Absolute Neuts (auto) 10.0 10^3/uL (1.4-6.5) H 05/04/23 19:50
Absolute Lymphs (auto) 0.9 10^3/uL (1.2-3.4) L 05/04/23 19:50
Absolute Monos (auto) 0.9 10^3/uL (0.1-0.6) H 05/04/23 19:50
Absolute Eos (auto) 0.1 10^3/uL (0-0.7) 05/04/23 19:50
Absolute Basos (auto) 0.1 10^3/uL (0-0.2) 05/04/23 19:50
Immature Gran % 0.4 % (0-0.5) 05/04/23 19:50
Neutrophils % 83.9 % (42.2-75.2) H 05/04/23 19:50
Lymphocytes % 7.4 % (20.5-51.1) L 05/04/23 19:50
Monocytes % 7.1 % (1.7-9.3) 05/04/23 19:50
Eosinophils % 0.6 % (0-6) 05/04/23 19:50
Basophils % 0.6 % (0-2) 05/04/23 19:50
Creatinine 0.8 mg/dL (0.7-1.3) 05/04/23 19:50
Vital Signs
Vital Signs
Temp Pulse Resp BP Pulse Ox
97.8 F 110 18 155/104 93
05/05/23 07:00 05/05/23 07:42 05/05/23 07:42 05/05/23 07:00 05/05/23 07:42
05/04/23 CXR: Right basilar pneumonia. COPD and chronic scarring.
[2023-05-05 09:33] LABS: Hematocrit 31.9 % (39.0-52.0); Hemoglobin 10.6 g/dL (13.0-18.0); Mean Corp Hgb Conc. 33.2 g/dL (33.0-37.0); Mean Corpuscular Hgb 29.3 pg (27.0-31.0); Mean Corpuscular Volume 88.1 fL (80.0-94.0); Mean Platelet Volume 9.4 fL (7.4-10.4); Platelet Count 637 10^3/uL (130-400); Red Blood Cell Count 3.62 10^6/uL (4.70-6.10); Red Cell Dist. Width 17.2 % (11.5-14.5); White Blood Cell Count 14.4 10^3/uL (4.8-10.8)
[2023-05-05 09:35] LABS: Blood Urea Nitrogen 29 mg/dl (9-20); Calcium 8.8 mg/dl (8.4-10.2); Carbon Dioxide 28 mmol/L (22-30); Chloride 98 mmol/L (98-107); Estimated Creatinine Clearance 69 ml/min; Glucose 97 mg/dl (70-99); Potassium 4.6 mmol/L (3.5-5.1); Sodium 130 mmol/L (135-145); eGFR > 60.00
[2023-05-05 09:44] LABS: Iron 49 ug/dl (49-181)
--- NOTE | 2023-05-05 09:46 | PTOTSP ---
ST Dysphagia Evaluation
Moderate oral dysphagia i/s/o jaw reconstruction (2019) and known mild pharyngeal dysphagia s/p VFSS (2021); tolerating baseline diet, no respiratory distress, on room air and procalcitonin (-)
Pt received awake/alert with eyes closed remained withdrawn/flat throughout eval. He has baseline cough junky but non-productive. Reviewed VFSS results from previous admission. Able to recall recommendations and strategies. HOB raised upright for PO
trials of puree, minced/moist solids and thin liquids. Demo adequate oral access/containment, mild-moderately prolonged bolus manipulation and bolus was orally cleared. Higher-level textures deferred as he does not consume them at baseline. Thin
liquids by straw and cup sip swallow appears prompt. No overt s/sx of aspiration observed.
Recommend
1. Minced/moist solids (L5) and Thin liquids
2. Aspiration and EVARISTO/reflux precautions
3. Small bites, moisten solids with gravy/sauce, small/single sips and slow rate. Intermittent throat clear/reswallow
4. Whole/single pills with sips of water - halve larger pills as able or place in apple sauce, per RN discretion
5. No further acute [employer] needs - on baseline diet. [employer] signing off please reconsult as needed
[2023-05-05 09:54] LABS: Percent Saturation 12 % (20-50); Total Iron Binding Capacity 388 ug/dl (261-462)
[2023-05-05 10:05] LABS: TSH Reflex To Free T4 2.22 uIU/ml (0.47-4.68)
--- NOTE | 2023-05-05 10:06 | WOUNDNOTE ---
R LATERAL LOWER LEG
--- NOTE | 2023-05-05 10:07 | WOUNDNOTE ---
IRVING RN note: Patient admitted with R lower lobe pneumonia.
See H&P for complete history.
PMH: Oral cancer, radiation, mandibular reconstruction surgery/bone graft site R leg at [facility], COPD, HTN, anxiety disorder, arthritis, bilateral knee repair, spinal stenosis, smoker, RLE vascular bypass 2021, current with [facility].
Wound Location and type/assessment: R lateral calf donor graft site, pink base and improved since last seen, slow to heal. Spoke with Dr. Moreno at wound care center to review current treatment. Patient states he follow up at wound care center on
a regular basis. Jaw reconstruction site has healed. Patient able to turn self to sides, heels blanchable red and faint red blanchable buttocks. Patient states he has not eaten in a week, dietary following.
Appetite: Patient states he is starving and waiting for his scrambled eggs to arrive.
Pressure redistribution devices in place: [employer] Accumax. Patient is Ad Monisha, uses a cane.
Plan: RLE dressing changed using hydrogel, gauze, abd pad and xavi, Tubigrip E knee high. Pressure ulcer prevention measures reviewed with patient, due to poor eating and low weight, patient susceptible to PI. Instructed patient frequent turning
and repositioning. Asked nurse Michaela to supply Air chair cushion when patient sitting.
Will confirm orders with hospitalist and updated nurse.
Care plan to be updated and will follow as needed. Patient to follow up with [facility], VN if going home.
[2023-05-05 11:25] LABS: Ferritin 25.6 ng/ml (17.9-464.0); Vitamin B12 315 pg/ml (239-931)
[2023-05-05] MEDS: VITAMIN B-12 1000 MCG PO (14:16)
[2023-05-05] MEDS: TYLENOL 650 MG PO ×2 (15:13→19:02)
--- NOTE | 2023-05-05 16:40 | W.PN.HOSP.TC ---
Today's Communication/Plan
-
Please see below
Assessment / Plan
Assessment / Plan
Physical Exam
General: Other (Frail, chronically ill-appearing 72y M in no acute distress.)
HEENT: Moist mucous membranes and Other (L mandible deformity s/p surgery.)
Respiratory: Other (Few coarse breath sounds at R base.� No wheeze / rales.)
Cardiac: S1/S2 and Regular Rhythm
GI: Soft, Non Tender, Non Distended and Normal Bowel Sounds
Musculoskeletal: No Cyanosis and No Edema
Skin: Other (Wound over lateral aspect of the R lower leg.� Appears to be healing quite nicely without erythema, induration, bleeding, etc.)
Neuro: AO x 3
Assessment/Plan�
Patient is a 72 y/o male with past medical history significant for oral cancer, osteonecrosis of the jaw, COPD and PAD who presents to ED complaining of 'feeling worn down'.
RLL Pneumonia - Possible Aspiration
�- Mild leukocytosis and abnormal lung sounds.� Admitted aspiration events during meals per patient.
�- Cover with IV abx for now: Rocephin and Doxycycline.
�- Procalcitonin normal
�- Supportive care including nebs, chest PT, etc
�- Formal Speech evaluation: continue IDDSI 5 diet
�- Aspiration precautions.
COPD without Acute Exacerbation
�- Stable.� No active wheezing on exam.
�- Continue inhaled medications.
�- Follow for any new / worsening symptoms.
�- Encourage smoking cessation.
RLE Wound
�- Stable.� This appears to be healing quite well.
�- No evidence of associated infection.
�- Wound Care eval for continued local care.
�- Hold further Bactrim for now given GI issues.
�- Continue follow-up with Wound Care as an outpatient.
Osteonecrosis of the Jaw
Oral Cancer
�- s/p surgery, reconstruction, radiation treatments
�- Certainly higher risk for aspiration issues as noted above.
�- No new / acute issues from jaw / oral perspective.
ASCVD
�- Documented PAD s/p RLE bypass surgery.
�- Not presently on ASA, statin, etc.� Some prior history of GI bleeding.
�- Follow-up with Vascular Surgery as an outpatient.
�- As noted, wound on the RLE appears to be healing quite well.
Chronic Pain Syndrome
Chronic Opioid Dependence
�- Stable.� Continue long-acting opioids + short acting breakthrough.
�- Adjust regimen as needed for pain control / least total amount of narcotic.
�- Case Management evaluation as patient may benefit from placement given home issues.
Chronic Thrombocytosis
-Hematology consulted, recommendations appreciated
-Appreciate hematology ordering iron studies, EPO and Jak2 to evaluate further.
-Patient will need outpatient hematology follow-up to review results and plan further workup if needed.
DVT Prophylaxis:� Subcut Heparin
Code Status:� Full
Anticipated Discharge: 24 - 48 hours
Subjective/Interval History
-
Date of Service: May 05, 2023
Patient was seen and examined. He was eating lunch at the time he was seen. He was on room air and reported a little cough and some shortness of breath over the past couple of weeks.
Objective Data
-
Labs:
Laboratory Results
05/05/23
08:15
WBC 14.4 H
Hgb 10.6 L
Hct 31.9 L
Plt Count 637 H
Sodium 130 L
Potassium 4.6
Chloride 98
Carbon Dioxide 28
BUN 29 H
Creatinine 0.6 L
Glucose 97
Calcium 8.8
Vital Signs:
Vital Signs
Temp Pulse Resp BP Pulse Ox
97.5 F 92 16 109/72 92
05/05/23 14:45 05/05/23 14:45 05/05/23 14:45 05/05/23 14:45 05/05/23 14:45
I&O
0305/05/23 05/06/23
06:59 06:59 06:59
Intake Total 1050 / 1050
Output Total 200 / 200
Balance 850 / 850
[2023-05-05] MEDS: VIBRAMYCIN 100 MG PO (20:14)
[2023-05-05] MEDS: SYMBICORT 80/4.5 MCG INHALER 2 PUFF INH (20:19)
[2023-05-05] MEDS: SENOKOT 17.1999999999999993 MG PO (21:30)
[2023-05-05] MEDS: NICODERM TRANSDERMAL 14 MG TRANSDERM (22:31)
[2023-05-05] MEDS: ZOFRAN 4 MG IV (22:43)
[2023-05-06 03:15] VITALS: BP 102/76
--- NOTE | 2023-05-06 03:43 | DOWNTIME ---
There was a [employer] Client Cutting Table Operator First Downtime on 05/06/2023 from 0100 to 05/06/2023 at 0322. Downtime documentation of patient's care, including medication administrations, has been reconciled in the electronic record per guidelines. Refer to the
patient's paper chart under the miscellaneous tab to see printed paper medication records and downtime forms.
[2023-05-06 06:00] VITALS: BMI 17.4
[2023-05-06 08:10] VITALS: BP 133/92
[2023-05-06] MEDS: SYMBICORT 80/4.5 MCG INHALER 2 PUFF INH ×2 (08:25→19:20)
[2023-05-06] MEDS: VIBRAMYCIN PO ×2 (08:58)
[2023-05-06] MEDS: FOLVITE 1 MG PO (08:58)
[2023-05-06] MEDS: MS CONTIN (EXTENDED RELEASE) 30 MG PO (08:58)
[2023-05-06] MEDS: COLACE 100 MG PO (08:58)
[2023-05-06] MEDS: VITAMIN B-12 1000 MCG PO (08:58)
[2023-05-06] MEDS: NEURONTIN 300 MG PO ×2 (08:58→16:28)
[2023-05-06] MEDS: HEPARIN 5000 UNITS SC ×2 (08:58→20:50)
[2023-05-06] MEDS: ROCEPHIN 1000 MG IV (08:59)
[2023-05-06] MEDS: NICODERM TRANSDERMAL 14 MG TRANSDERM (08:59)
[2023-05-06] MEDS: THIAMINE INJECTION 255 MG IV ×3 (09:00→23:15)
[2023-05-06] MEDS: STERILE WATER FOR INJECTION 10 ML IV (09:00)
--- NOTE | 2023-05-06 10:13 | PTOTSP ---
Speech Language Pathology
ONCOLOGY RESEARCH RN reconsult received as pt is requesting diet upgrade. Given current RLL PNA, increased WBC, and pt reports of aspiration events at times at home coupled with hx of silent aspiration and significant oral dysphagia, would recommend repeat VSE
prior to considering diet upgrade.
[2023-05-06 10:25] LABS: % Basophils 0.5 % (0-2); % Eosinophils 1.7 % (0-6); % Immature Granulocytes 0.5 % (0-0.5); % Lymphocytes 4.7 % (20.5-51.1); % Monocytes 5.1 % (1.7-9.3); % Neutrophils 87.5 % (42.2-75.2); Absolute Basophils 0.1 10^3/uL (0-0.2); Absolute Eosinophils 0.2 10^3/uL (0-0.7); Absolute Immature Granulocytes 0.1 10^3/uL (0-0.05); Absolute Lymphocytes 0.6 10^3/uL (1.2-3.4); Absolute Monocytes 0.7 10^3/uL (0.1-0.6); Absolute Neutrophils 12.1 10^3/uL (1.4-6.5); Hemoglobin 10.6 g/dL (13.0-18.0); Mean Corp Hgb Conc. 33.1 g/dL (33.0-37.0); Mean Corpuscular Hgb 29.4 pg (27.0-31.0); Mean Corpuscular Volume 88.9 fL (80.0-94.0); Mean Platelet Volume 8.5 fL (7.4-10.4); Nucleated Red Blood Cells % 0 % (-); Platelet Count 675 10^3/uL (130-400); Red Cell Dist. Width 17.5 % (11.5-14.5); White Blood Cell Count 13.8 10^3/uL (4.8-10.8)
--- NOTE | 2023-05-06 10:27 | PN.CDI ---
CDI
- -
CDI:
Physician Documentation Request
Admit Date: 05/05/23 01:44
Dear Doctor Clifford,
05/04 RD note states 'During rounds RD observed pt with protrusion of clavical, temporal wasting. With weight loss > 5% in 1 month and > 75% estimated needs > 1 month, pt meets AND/ASPEN criteria for moderate protein calorie malnutrition'
ED exam describes the patient as ' Thin and frail appearing, cachectic'
Ht: 5 ft 3 inches
Wt: 97 lb
BMI: 17.2
Based on the information, which of the following most accurately represents the patient's nutritional status?
Malnutrition (specify if mild, moderate or severe)
Cachexia without malnutrition
Underweight without malnutrition
Other (please specify)
[place] Criteria ([facility] Hospitalist 2017)
2 or more criteria must be present for either
non severe or severe malnutrition
Note that the criteria differs related to the
presence of an acute or chronic illness
Acute Illness Chronic Illness
Energy Intake Non Severe: <75% for >7 days Non Severe: <75% for >1 month
Severe: <50% for >5 days Severe: <75% for >1 month
Weight Loss Non Severe: 1-2% over 1 week Non Severe: 5% over 1 month
5% over 1 month 7.5% over 3 months
7.5% over 3 months 10% over 6 months
1 year N/A 20% over 1 year
Severe: >2% over 1 week Severe: >5% over 1 month
>5% over 1 month >7.5% over 3 months
>7.5% over 3 months >10% over 6 months
1 year N/A >20% over 1 year
Body Fat Non Severe: Mild Decrease Non Severe: Mild Loss
Severe: Moderate Decrease Severe: Severe Loss
Muscle Mass Non Severe: Mild Decrease Non Severe: Mild Loss
Severe: Moderate Decrease Severe: Severe Loss
Fluid Accumulation Non Severe: Mild Accumulation Non Severe: Mild Accumulation
Severe: Moderate to severe Severe: Moderate to severe
accumulation accumulation
Reduced Offset Label Rewinder Strength Non Severe: N/A Non Severe: N/A
Severe: Measurably reduced Severe: Measurably reduced
Additional criteria that can be used to Determine if Mild or Moderate Malnutrition (Merck Manual 2018)
Mild Moderate Severe
Albumin gm/dl <3.0 gm/dl <2.5 gm/dl <2.0 gm/dl
Pre Albumin mg/dl <15 gm/dl <10 mg/dl <5.0 mg/dl
BMI <18.5 <17 <16
Use of terms such as suspected, likely, concern for, or probable (associated with a specific diagnosis that is being evaluated, monitored, or treated as if it exists) are acceptable and can be coded in the inpatient setting, when documented at the
time of discharge.
Thank you,
Jud Mitchell RN, BSN
CDI Specialist
tiger text
Please use your independent medical judgment in providing your response.
--- NOTE | 2023-05-06 10:31 | PN.CDI ---
CDI
- -
CDI:
Physician Documentation Request
Admit Date: 05/05/23 01:44
Dear Doctor Clifford,
Patient admitted for pneumonia, possible aspiration.
Recent sodium resulted as follows:
05/04/23 05/05/23
19:50 08:15
Sodium 130 L 130 L
Based on the above, could you please provide a diagnosis that supports the above lab abnormalities and additional evaluation/ monitoring:
Hyponatremia
Abnormal lab value clinically insignificant
Other
Use of terms such as suspected, likely, concern for, or probable (associated with a specific diagnosis that is being evaluated, monitored, or treated as if it exists) are acceptable and can be coded in the inpatient setting, when documented at the
time of discharge.
Thank you,
Jud Mitchell RN, BSN
CDI Specialist
tiger text
Please use your independent medical judgment in providing your response.
[2023-05-06 11:49] LABS: Erythropoietin (EPO) 18 mU/mL (4-27)
[2023-05-06 11:53] LABS: Blood Urea Nitrogen 21 mg/dl (9-20); Calcium 8.9 mg/dl (8.4-10.2); Carbon Dioxide 28 mmol/L (22-30); Chloride 97 mmol/L (98-107); Estimated Creatinine Clearance 70 ml/min; Glucose 136 mg/dl (70-99); Magnesium 1.6 mg/dl (1.6-2.3); Potassium 4.4 mmol/L (3.5-5.1); Sodium 131 mmol/L (135-145); eGFR > 60.00
--- NOTE | 2023-05-06 13:03 | W.PN.HOSP.TC ---
Today's Communication/Plan
-
Will have discussion with patient about tube feeding given his dysphagia issues on VSE
NPO (including meds) as per speech has been recommended
Continue Abx
Assessment / Plan
Assessment / Plan
Physical Exam
General: Other (Frail, chronically ill-appearing 72y M in no acute distress.)
HEENT: Moist mucous membranes and Other (L mandible deformity s/p surgery.)
Respiratory: Other (Few coarse breath sounds at R base.� No wheeze / rales.)
Cardiac: S1/S2 and Regular Rhythm
GI: Soft, Non Tender, Non Distended and Normal Bowel Sounds
Musculoskeletal: No Cyanosis and No Edema
Skin: Other (Wound over lateral aspect of the R lower leg.� Appears to be healing quite nicely without erythema, induration, bleeding, etc.)
Neuro: AO x 3
Assessment/Plan�
Patient is a 72 y/o male with past medical history significant for oral cancer, osteonecrosis of the jaw, COPD and PAD who presents to ED complaining of 'feeling worn down'.
RLL Pneumonia - Possible Aspiration
�- Mild leukocytosis and abnormal lung sounds.� Admitted aspiration events during meals per patient.
�- Cover with IV abx for now: Rocephin and Doxycycline.
�- Procalcitonin normal
�- Supportive care including nebs, chest PT, etc
�- Formal Speech evaluation: continue IDDSI 5 diet
�- Aspiration precautions.
- Discussed with speech therapist on May 06, 2023, who said, 'Mansoor Luther, on video swallow study silently aspirated thin liquids nectar, thick wood, and honey. Significant retention with pur�e and solids.
Recommend NPO given high risk for repeated aspiration and subsequent complications. Patient was able to view all images. Discuss risks complications which could occur. He said he wants to keep
eating and wants a diet upgrade. Please speak with him further about goals of care. Thank you.'
- Will place NPO (including PO medications) for now and have a further discussion with the patient
- Will need to discuss with clinical pharmacist about changing to IV alternatives of medications for now
COPD without Acute Exacerbation
�- Stable.� No active wheezing on exam.
�- Continue inhaled medications.
�- Follow for any new / worsening symptoms.
�- Encourage smoking cessation.
Hyponatremia
-Monitor BMP
RLE Wound
�- Stable.� This appears to be healing quite well.
�- No evidence of associated infection.
�- Wound Care eval for continued local care.
�- Hold further Bactrim for now given GI issues.
�- Continue follow-up with Wound Care as an outpatient.
Osteonecrosis of the Jaw
Oral Cancer
�- s/p surgery, reconstruction, radiation treatments
�- Certainly higher risk for aspiration issues as noted above.
�- No new / acute issues from jaw / oral perspective.
ASCVD
�- Documented PAD s/p RLE bypass surgery.
�- Not presently on ASA, statin, etc.� Some prior history of GI bleeding.
�- Follow-up with Vascular Surgery as an outpatient.
�- As noted, wound on the RLE appears to be healing quite well.
Chronic Pain Syndrome
Chronic Opioid Dependence
�- Stable.� Continue long-acting opioids + short acting breakthrough.
�- Adjust regimen as needed for pain control / least total amount of narcotic.
�- Case Management evaluation as patient may benefit from placement given home issues.
Chronic Thrombocytosis
-Hematology consulted, recommendations appreciated
-Appreciate hematology ordering iron studies, EPO and Jak2 to evaluate further.
-Patient will need outpatient hematology follow-up to review results and plan further workup if needed.
Moderate protein calorie malnutrition
DVT Prophylaxis:� Subcut Heparin
Code Status:� Full
Anticipated Discharge: > 48 hours
Subjective/Interval History
-
Date of Service: May 06, 2023
Patient was seen and examined. He was adamant about having his diet upgraded to a full, regular diet. He otherwise said he was 'feeling great.'
Objective Data
-
Labs:
Laboratory Results
05/06/23
10:04
WBC 13.8 H
Hgb 10.6 L
Hct 32.0 L
Plt Count 675 H
Sodium 131 L
Potassium 4.4
Chloride 97 L
Carbon Dioxide 28
BUN 21 H
Creatinine 0.6 L
Glucose 136 H
Calcium 8.9
Vital Signs:
Vital Signs
Temp Pulse Resp BP Pulse Ox
97.9 F 108 20 133/92 94
05/06/23 08:10 05/06/23 08:25 05/06/23 08:25 05/06/23 08:10 05/06/23 08:25
I&O
05/05/23 05/06/23 05/07/23
06:59 06:59 06:59
Intake Total 1050 / 1050 1920 / 1920
Output Total 200 / 200 250 / 250
Balance 850 / 850 1670 / 1670
--- NOTE | 2023-05-06 14:09 | PTOTSP ---
Addendum entered and electronically signed by ST Anastacio 05/06/23 14:18:
[facility]
Original Note:
Video Swallow Examination
Patient presents with moderate oral and severe pharyngeal stage of swallowing. Etiology of dysphagia is felt to be history of oral cancer with subsequent treatments (XRT; jaw reconstruction) in combination with current acute illness. Patient had
silent aspiration (no cough) of thin liquids, mildly thick liquids, and moderately thick liquids and could not clear aspiration with cued coughing. He is at risk for aspiration and airway obstruction with thicker consistencies due to poor clearance
through PES resulting in pharyngeal residue. Please see patient care note for full details.
Patient is currently admitted with PNA which is concerning for a complication from chronic dysphagia and aspiration. Extensive education completed after swallow study about results/recommendations (i.e., silent aspiration, pharyngeal residue,
aspiration risks, risk for choking, complications of aspiration/choking, NPO recommendation, GOC discussion with physician to discuss alternate means vs opting for PO diet understanding aspiration risks). OFFICE MACHINES SALES REPRESENTATIVE updated RN and MD. Patient was able to
view all images after test. He verbalized understanding and stated he wanted a diet advancement.
Recommend:
1. NPO pending GOC discussion with MD
2. Medications via non-oral means
3. Oral care 3-5x daily with strict aspiration precautions
4. Aspiration Risk Hydration Protocol - sparing tsp sips of water after oral care
5. Dysphagia tx at the acute care level for patient education and rehabilitation as able/appropriate.
[2023-05-06 16:00] VITALS: BP 129/82
--- NOTE | 2023-05-06 16:50 | CM ---
CM following re: d/c planning
Chart reviewed
CM met with the patient at bedside; IA completed
Pt states he resides with his spouse & son in a 1SH with 1STE
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
Pt has SNF hx however doesn't recall the name, has had VN hx with [facility], & has a r/w. shower chair, shower rails, & spc
Pt confirms prescription coverage and rx's are filled at [facility] on [address] [place]
Pt PCP-Werner Hansen
CM met with Taylor Herrera [facility] [phone] who was also assessing the patient for disposition plan
CM will continue to follow patient progress and assist with needs at d/c as indicated
PLAN; CM following for needs
[2023-05-06] MEDS: FOLVITE 50.2000000000000028 MG IV (18:02)
[2023-05-06] MEDS: MAGNESIUM SULFATE 102 GRAMS IV (18:08)
[2023-05-06 19:48] VITALS: BP 149/89
[2023-05-06] MEDS: VIBRAMYCIN 260 MG IV (20:51)
[2023-05-06] MEDS: MS CONTIN (EXTENDED RELEASE) PO (20:51)
--- NOTE | 2023-05-06 22:38 | W.PN.UPDATE ---
Update Note
Progress Note Update
Patient with reported anxiety, utilizes PRN Atarax at home, currently with dysphagia and current NPO order with no meds. Order placed for one time dose Ativan 0.5mg IV for anxiety.
[2023-05-06 23:05] VITALS: BP 127/89
[2023-05-06] MEDS: ATIVAN 0.5 MG IV (23:09)
[2023-05-06] MEDS: NSS (PRESERVATIVE FREE) 0.25 ML IV (23:10)
[2023-05-06] MEDS: DILAUDID 0.5 MG IV (23:12)
[2023-05-07 03:48] VITALS: BMI 17.4
[2023-05-07 03:53] VITALS: BP 122/81; BP 76/47; BP 92/67; PULSE 101; PULSE 98
[2023-05-07 07:05] VITALS: BP 105/63; BP 124/78; BP 80/54; PULSE 88; PULSE 95; PULSE 96
[2023-05-07 08:01] LABS: % Basophils 0.7 % (0-2); % Immature Granulocytes 0.5 % (0-0.5); % Lymphocytes 10.1 % (20.5-51.1); % Monocytes 7.8 % (1.7-9.3); % Neutrophils 76.9 % (42.2-75.2); Absolute Basophils 0.1 10^3/uL (0-0.2); Absolute Eosinophils 0.4 10^3/uL (0-0.7); Absolute Immature Granulocytes 0.1 10^3/uL (0-0.05); Absolute Monocytes 0.8 10^3/uL (0.1-0.6); Hematocrit 29.7 % (39.0-52.0); Hemoglobin 9.8 g/dL (13.0-18.0); Mean Corpuscular Hgb 29.3 pg (27.0-31.0); Mean Corpuscular Volume 88.9 fL (80.0-94.0); Mean Platelet Volume 9.2 fL (7.4-10.4); Nucleated Red Blood Cells % 0 % (-); Platelet Count 589 10^3/uL (130-400); Red Blood Cell Count 3.34 10^6/uL (4.70-6.10); Red Cell Dist. Width 17.6 % (11.5-14.5); White Blood Cell Count 10.3 10^3/uL (4.8-10.8)
[2023-05-07] MEDS: SYMBICORT 80/4.5 MCG INHALER INH (08:05)
[2023-05-07 08:09] LABS: Blood Urea Nitrogen 15 mg/dl (9-20); Calcium 8.8 mg/dl (8.4-10.2); Carbon Dioxide 29 mmol/L (22-30); Chloride 100 mmol/L (98-107); Estimated Creatinine Clearance 70 ml/min; Glucose 78 mg/dl (70-99); Magnesium 1.9 mg/dl (1.6-2.3); Potassium 4.6 mmol/L (3.5-5.1); Sodium 131 mmol/L (135-145); eGFR > 60.00
[2023-05-07] MEDS: VIBRAMYCIN 260 MG IV (09:21)
[2023-05-07] MEDS: THIAMINE INJECTION 255 MG IV ×2 (09:22→16:49)
[2023-05-07] MEDS: STERILE WATER FOR INJECTION IV (09:22)
[2023-05-07] MEDS: HEPARIN 5000 UNITS SC (09:23)
[2023-05-07] MEDS: ROCEPHIN IV (09:23)
[2023-05-07] MEDS: NICODERM TRANSDERMAL 14 MG TRANSDERM (09:23)
[2023-05-07] MEDS: MS CONTIN (EXTENDED RELEASE) PO (09:24)
[2023-05-07 09:42] LABS: Glucose - Point of Care 87 mg/dl (70-99)
[2023-05-07 10:41] LABS: Hematocrit 28.3 % (39.0-52.0); Hemoglobin 9.5 g/dL (13.0-18.0); Mean Corp Hgb Conc. 33.6 g/dL (33.0-37.0); Mean Corpuscular Volume 89.3 fL (80.0-94.0); Mean Platelet Volume 8.3 fL (7.4-10.4); Platelet Count 617 10^3/uL (130-400); Red Blood Cell Count 3.17 10^6/uL (4.70-6.10); Red Cell Dist. Width 17.7 % (11.5-14.5); White Blood Cell Count 15.5 10^3/uL (4.8-10.8)
[2023-05-07 10:59] LABS: ALT (SGPT) 16 U/L (0-50); AST (SGOT) 28 U/L (17-59); Albumin 2.7 g/dl (3.5-5.0); Alkaline Phosphatase 59 U/L (38-126); Blood Urea Nitrogen 14 mg/dl (9-20); Calcium 8.4 mg/dl (8.4-10.2); Carbon Dioxide 27 mmol/L (22-30); Chloride 103 mmol/L (98-107); Estimated Creatinine Clearance 70 ml/min; Glucose 82 mg/dl (70-99); Magnesium 1.7 mg/dl (1.6-2.3); Phosphorus 4.2 mg/dl (2.5-4.5); Potassium 4.2 mmol/L (3.5-5.1); Sodium 132 mmol/L (135-145); Total Bilirubin 0.4 mg/dl (0.2-1.3); Total Protein 5.7 g/dl (6.3-8.2); eGFR > 60.00
[2023-05-07 11:07] LABS: Ammonia < 9 umol/L (9-30)
[2023-05-07 11:08] LABS: Troponin I < 0.012 ng/ml
[2023-05-07 11:26] VITALS: BP 144/86
--- NOTE | 2023-05-07 11:35 | W.PN.HOSP.TC ---
Addendum entered and electronically signed by Guy Horton MD 05/07/23 16:52:
Patient insists that he be discharged today. Patient has been walking around and has been alert and awake for most of the day today, after the Rapid Response. He denied any chest pain or shortness of breath. Discussed case with patient's inside
patient's room and she is agreeable for patient to be discharged today.
Original Note:
Today's Communication/Plan
-
Rapid Response today (see details below)
Minimize/avoid sedating medications
Continue antibiotics
Possible feeding tube -- spoke with patient's Lakesha extensively
Assessment / Plan
Assessment / Plan
Physical Exam
General: Not in acute distress
HEENT: Moist mucous membranes and Other (L mandible deformity s/p surgery.)
Respiratory: Few coarse breath sounds at right base
Cardiac: S1/S2 and Regular Rhythm
GI: Soft, Non Tender, Non Distended and Normal Bowel Sounds
Musculoskeletal: No Cyanosis and No Edema
Skin: Wound over lateral aspect of the right lower leg
Neuro: AAO x 3. Cranial Nerves 2 through 12 grossly intact. Strength 5/5 bilaterally and sensation grossly intact bilaterally.
Assessment/Plan�
Patient is a 72 y/o male with past medical history significant for oral cancer, osteonecrosis of the jaw, COPD and PAD who presents to ED complaining of 'feeling worn down'.
RLL Pneumonia - Possible Aspiration
�- Mild leukocytosis and abnormal lung sounds.� Admitted aspiration events during meals per patient.
�- Cover with IV abx for now: Rocephin and Doxycycline.
�- Procalcitonin normal
�- Supportive care including nebs, chest PT, etc
�- Formal Speech evaluation: continue IDDSI 5 diet
�- Aspiration precautions.
- Discussed with speech therapist on May 06, 2023, who said, 'Mansoor Luther, on video swallow study silently aspirated thin liquids nectar, thick wood, and honey. Significant retention with pur�e and solids.
Recommend NPO given high risk for repeated aspiration and subsequent complications. Patient was able to view all images. Discuss risks complications which could occur. He said he wants to keep
eating and wants a diet upgrade. Please speak with him further about goals of care. Thank you.'
- NPO (including PO medications) for now
- On May 07, 2023, I discussed (over the phone) patient's case with patient's Lakesha and explained to her patient's hospitalization so far and the fact that he is not able to safely swallow based on
the Video Swallow Exam done on May 07, 2023. She mentioned that prior to coming to the hospital, patient cut up hard meat and put it in a lens grinder rough, had mashed potatoes and anything soft. I
explained to her that if he continues to take anything orally (including medications) he may have aspiration pneumonitis, pneumonia, choking, and
worsening hypoxia. She appeared to be open to the idea of a feeding tube and mentioned that she will discuss feeding tube with the patient and get back to me, in the meantime I have consulted
Gastroenterology to evaluate patient for a PEG tube and contact patient's and patient about how that will work. Operator Supply and Dietitian are also aware and Dietitian will provide tube feeding
recommendations in case tube feeding is started.
- Consulted gastroenterology for tube feeding recommendations including possible PEG tube
Syncope on May 07, 2023
Orthostatic Hypotension
-Took place around the time of urination and RAPID RESPONSE WAS CALLED AT THAT TIME
-Possibly vasovagal syncope vs. sedative medications overnight vs. orthostatic hypotension vs. cardiogenic vs. multifactorial
-EKG did not show any signs of acute coronary syndrome and patient denied any chest pain or shortness of breath, although he had heartburn type pain before that
-Orthostatic vital signs
-Echocardiogram
-Trend troponins
-Minimize/avoid sedating medications
-Will STOP DILAUDID as patient's told me over the phone on May 07, 2023 that patient does not take that anymore
COPD without Acute Exacerbation
�- Stable.� No active wheezing on exam.
�- Continue inhaled medications.
�- Follow for any new / worsening symptoms.
�- Encourage smoking cessation.
Hyponatremia
-Monitor BMP
Chronic RLE Wound
�- Stable.� This appears to be healing quite well.
�- No evidence of associated infection.
�- Wound Care eval for continued local care.
�- Hold further Bactrim (was given for cellulitis by wound care) for now given GI issues (spoke to Dr. Moreno from wound care and he said the course of Bactrim should have been completed by now anyway)
�- Continue follow-up with Wound Care as an outpatient.
- Patient's Lakesha mentioned that in addition to the recent antibiotic for his wound, he was also on an antibiotic for a cold
Osteonecrosis of the Jaw (had infection of jaw and under about 2-3 years ago after radiation at [facility] for his cancer, needing bone graft from leg) with Associated Chronic Pain
Oral Cancer
�- s/p surgery, reconstruction, radiation treatments
�- Certainly higher risk for aspiration issues as noted above.
�- No new / acute issues from jaw / oral perspective.
- Patient does not Hydromorphone, as per patient's
ASCVD
�- Documented PAD s/p RLE bypass surgery.
�- Not presently on ASA, statin, etc.� Some prior history of GI bleeding.
�- Follow-up with Vascular Surgery as an outpatient.
�- As noted, wound on the RLE appears to be healing quite well.
Chronic Pain Syndrome
Chronic Opioid Dependence
�- Stable.� Continue long-acting opioids + short acting breakthrough.
�- Adjust regimen as needed for pain control / least total amount of narcotic.
�- Case Management evaluation as patient may benefit from placement given home issues.
Chronic Thrombocytosis
-Hematology consulted, recommendations appreciated
-Appreciate hematology ordering iron studies, EPO and Jak2 to evaluate further.
-Patient will need outpatient hematology follow-up to review results and plan further workup if needed.
Moderate protein calorie malnutrition
DVT Prophylaxis:� Subcut Heparin
Code Status:� Full
Total time spent today reviewing patient's chart, seeing and examining the patient, addressing rapid response, placing orders, spending time on documentation, and speaking with patient's was 100 minutes.
Anticipated Discharge: > 48 hours
Subjective/Interval History
-
Date of Service: May 07, 2023
Patient was seen and examined. Earlier in the morning he was sleeping comfortably but later in the morning, he reported some heartburn kind of pain, and when he was sat up for urination he wasn't urinating directly at the urinal/container but was
urinating outside of it too, when he was being laid back down he was unresponsive for a brief period of time, and rapid response was called. Patient woke up and was making jokes, denied any significant complaints except for some dizziness.
Objective Data
-
Labs:
Laboratory Results
05/07/23 05/07/23
07:03 10:30
WBC 10.3 15.5 H
Hgb 9.8 L 9.5 L
Hct 29.7 L 28.3 L
Plt Count 589 H 617 H
Sodium 131 L 132 L
Potassium 4.6 4.2
Chloride 100 103
Carbon Dioxide 29 27
BUN 15 14
Creatinine 0.5 L 0.6 L
Glucose 78 82
Calcium 8.8 8.4
Total Bilirubin 0.4
AST 28
ALT 16
Alkaline Phosphatase 59
Vital Signs:
Vital Signs
Temp Pulse Resp BP Pulse Ox
98.1 F 90 16 144/86 100
05/07/23 11:26 05/07/23 11:26 05/07/23 11:26 05/07/23 11:26 05/07/23 11:26
I&O
05/06/23 05/07/23 05/08/23
06:59 06:59 06:59
Intake Total 1919 / 1919 815 / 815
Output Total 250 / 250 850 / 850
Balance 1670 / 1670 -35 / -35
[2023-05-07] MEDS: ROCEPHIN 1000 MG IV (11:37)
[2023-05-07] MEDS: STERILE WATER FOR INJECTION 10 ML IV (11:37)
--- NOTE | 2023-05-07 12:13 | WOUNDNOTE ---
WOC RN Note: Spoke with Dr. Moreno who reviewed RLE wound picture from 05/05/23 who confirmed to continue hydrogel instead of Silvadene cream. Updated Dr. Horotn via tiger text.
--- NOTE | 2023-05-07 12:33 | CON.GI ---
Consultation
-
Date/Time Consultation Requested: 05/07/23 1130
Date/Time Consultation Performed: 05/07/23 1230
Requesting Provider: Guy Horton MD
Performing Provider: PIERRE Hernandez, Kamaljit Drake MD
Reason for Consultation: eval for peg abnormal VSE
Medical History
Chief Complaint / HPI
Chief Complaint: dysphagia
History of Present Illness:
Pt is a 72yo with hx oral cancer with resection and radiation 4 years ago followed by chronic wound/osteonecrosis of jaw and need for further surgical intervention and bone graft from leg about 2 years ago, AMPARO, TA polyps 2009, thrombocytosis,
ASCVD, HTN, chronic pain, anxiety/depression. he presents to hospital for 05/04 with failure to thrive and fatigue. He admitted to shortness of breath and cough. He also admits to recent abx with stomach discomfort. Pt noted with concern for
aspiration PNA. She was seen by speech with concern for moderate oral and severe pharyngeal dysphagia with silent aspiration (no cough) of thin liquids, mildly thick liquids, and moderately thick liquid. She was recommended NPO with goals of care
discussion as risk of aspiration. Last PNA 2 years ago.
In reviewing with patient and pt with wt loss 40 + lbs in 4 years down to 98 lbs. He has slow eating but has been mostly taking pureed foods. Admits to occasional dysphagia with food sticking in upper esophagus. He has GERD wihth
occasional antiacid use. He also admits to constipation with PRN laxatives and prune juice. He denies nausea, vomiting, food impaction, or rectal bleeding. Hx AMPARO EGD 02/2022-no lesions in esophagus, small HH no lesions in stomach, normal duodenum.
colon 2022 with diverticulosis tattoo rectosigmoid, IH
Past Medical History
Past Medical History: Cancer (oral CA), COPD, HTN and Other (osteonecrosis of jaw, ASCVD, chronic pain, AMPARO)
Past Surgical History: Orthopedic (b/l knee surgery, spinal fusion) and Other (oral cancer surgery, jaw reconstruction, RLE bone harvest, RLE bypass)
Social History
Tobacco: Smoker
Alcohol: Former (prior heavy)
Drug: None
Personal:
Living: With Family
Family History
Family History: Other (no family hx colon CA or polyps)
Allergies / Home Medications
Allergy/AdvReac Type Severity Reaction Status Date / Time
BALA Inhibitors Allergy upset Verified 05/04/23 19:48
[Bala Inhibitors] stomach
atorvastatin calcium Allergy upset Verified 05/04/23 19:48
[From Lipitor] stomach
lisinopril Allergy Rash Verified 05/04/23 19:48
�Medication �Instructions �Recorded
morphine 15 mg immediate release 7.5 - 15 mg PO Q4H PRN severe pain 06/15/20
tablet
gabapentin 300 mg capsule 300 mg PO TID Pain 09/09/21
sennosides 8.6 mg tablet (Senna 8.6 mg PO DAILY Supplement 09/09/21
Laxative)
lorazepam 1 mg tablet 1 mg PO BID PRN anxiety 09/11/21
morphine 30 mg tablet,extended 30 mg PO BID Pain 11/05/21
release
hydromorphone 2 mg tablet 2 mg PO Q6H PRN wound vac mike 05/04/23
hydroxyzine HCl 25 mg tablet 25 mg PO Q8H PRN anxiety 05/04/23
sulfamethoxazole 800 1 tab PO BID Infection 05/04/23
mg-trimethoprim 160 mg tablet
Review of Systems
-
History Source: Patient and Family
Constitutional: Reports Weight Loss
EENT: Reports No Symptoms
Respiratory: Reports Cough
Cardiac: Reports No Symptoms
Abdomen/GI: Reports Constipated and Other (GERD)
: Reports No Symptoms
Musculoskeletal: Reports No Symptoms
Skin: Reports No Symptoms
Neurological: Reports Weakness
Endocrine: Reports No Symptoms
Hematologic/Lymphatic: Reports No Symptoms
Vital Signs
Temp Pulse Resp BP Pulse Ox
98.1 F 90 16 144/86 100
05/07/23 11:26 05/07/23 11:26 05/07/23 11:26 05/07/23 11:26 05/07/23 11:26
Physical Exam
Exam
General: Well Developed, Well Nourished and Other (thin appearing)
HEENT: Other (s/p Head/neck surgery with surgical changes )
Respiratory: Other (decreased )
Cardiac: Regular Rhythm
GI: Soft, Non Tender and Non Distended
Musculoskeletal: No Clubbing and No Cyanosis
Skin: Warm and Dry
Neuro: Awake, Alert and AO x 3
Psych: Calm
Results
WBC 15.5 10^3/uL (4.8-10.8) H 05/07/23 10:30
Hgb 9.5 g/dL (13.0-18.0) L 05/07/23 10:30
Hct 28.3 % (39.0-52.0) L 05/07/23 10:30
MCV 89.3 fL (80.0-94.0) 05/07/23 10:30
Plt Count 617 10^3/uL (130-400) H 05/07/23 10:30
Absolute Neuts (auto) 8.0 10^3/uL (1.4-6.5) H 05/07/23 07:03
Sodium 132 mmol/L (135-145) L 05/07/23 10:30
Potassium 4.2 mmol/L (3.5-5.1) 05/07/23 10:30
Chloride 103 mmol/L (98-107) 05/07/23 10:30
Carbon Dioxide 27 mmol/L (22-30) 05/07/23 10:30
BUN 14 mg/dl (9-20) 05/07/23 10:30
Creatinine 0.6 mg/dL (0.7-1.3) L 05/07/23 10:30
Calcium 8.4 mg/dl (8.4-10.2) 05/07/23 10:30
Total Bilirubin 0.4 mg/dl (0.2-1.3) 05/07/23 10:30
AST 28 U/L (17-59) 05/07/23 10:30
ALT 16 U/L (0-50) 05/07/23 10:30
Alkaline Phosphatase 59 U/L (38-126) 05/07/23 10:30
Diagnostic Image Results:
05/04/23 Right basilar pneumonia. COPD and chronic scarring.
Prior GI Procedures:
EGD: 02/2022-no lesions in esophagus, small HH no lesions in stomach, normal duodenum.
Colonoscopy: 2022 with diverticulosis tattoo rectosigmoid, IH
Assessment / Plan
-
Pt is a 72yo with hx oral cancer with resection and radiation 4 years ago followed by chronic wound/osteonecrosis of jaw and need for further surgical intervention and bone graft from leg about 2 years ago, AMPARO, TA polyps 2008, thrombocytosis,
ASCVD, HTN, chronic pain, anxiety/depression. he presents to hospital for 05/04 with failure to thrive and fatigue. He admitted to shortness of breath and cough. He also admits to recent abx with stomach discomfort. Pt noted with concern for
aspiration PNA. She was seen by speech with concern for moderate oral and severe pharyngeal dysphagia with silent aspiration (no cough) of thin liquids, mildly thick liquids, and moderately thick liquid. She was recommended NPO with goals of care
discussion as risk of aspiration. pt with wt loss 40 + lbs in 4 years down to 98 lbs. He has slow eating but has been mostly taking pureed foods. Admits to occasional dysphagia with food sticking in upper esophagus. EGD 02/2022-no lesions in
esophagus, small HH no lesions in stomach, normal duodenum. colon 2022 with diverticulosis tattoo rectosigmoid, IH
-nutritional evaluation
-aspiration PNA
-moderate oral and severe pharyngeal dysphagia with silent aspiration
-COPD
-oral CA with resection/radiation 4 years ago followed by chronic wound/osteonecrosis of jaw for further surgical intervention and bone graft from leg about 2 years ago
-weight loss
anemia withprior GI work up
other medical problems:
-AMPARO
-TA polyps
-thrombocytosis
-ASCVD
-HTN
-chronic pain
-anxiety/depression
PLAN:
Reviewed with patient and spouse need for peg if for concern for aspiration and also weight loss with slow eating in setting of prior oral CA and radiation
reviewed after radiation can lead to swallowing issues years later
discussed risk of oral diet including recurrent aspiration, sepsis, PNA, and risk of peg-- does not 100% eliminate aspiration risk, and risk of bleeding, infection perforation with placement and post peg complication
Pt at this time wishes to accept risk of no peg and proceed with oral diet . He is aware if things change after admission to contact GI office
is present during discussion and wishes for patient to make decision
will advance to pureed diet
tiger text sent to Dr. Horton and speech therapy to review pt decision
cont rx for PNA
-
-
Thank you for consultation and allowing me to participate in the patient's care. Please call the professional advisor GI physician during the after hours with any questions or concerns.
--- NOTE | 2023-05-07 14:24 | CM ---
Addendum entered by Batool Jaramillo 05/07/23 16:41:
patient now wants to discharge home.spoke with who states patient will dc home with po abx and go to outpatient speech therapy. has declined any additional services.patient's signed medicare letter.
Original Note:
received tiger text from attending that he is ordering a gi cs for possible peg placement. has spoken withfamily about pt being npo and that dht is only temporary and peg tube would be a more permanent option. will speak with patient and let
doctor know. wanted to konw if peg tube feedings can be done at home. dr espinoza patient has a hx of head and neck cancer and radiation about 2-3 years ago and patient's difficulty swallowing may be due to radiation. cm to follow patient's
progress and family decision. regarding nutrition.
plan home vs snf placement.
[2023-05-07] MEDS: CYANOCOBALAMIN 1000 MCG IM (14:33)
[2023-05-07 15:10] VITALS: BP 139/84; PULSE 89; O2SAT 95
[2023-05-07 16:00] VITALS: BP 121/77
--- NOTE | 2023-05-07 16:01 | RR ---
A Rapid Response was called on this patient, please see Rapid Response form.
this RN went into pt room at approximately 0930 this morning to give morning medications. pt presented drowsy and lethargic but was verbally arousable. pt reported having to use the urinal. pt was asked by RN to use urinal in bed, but pt insisted
to stand stating that he was unable to urinate sitting down. RN stood directly next to pt at bedside and assisted pt with set up of urinal. pt began to lean over on table and starting urinating on floor. pt became unresponsive and was gently
assisted to the bed. rapid response called
--- NOTE | 2023-05-07 17:13 | W.DS.TRANS ---
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
-
Discharge Instructions:
Discharge Diagnosis/Procedures Right Lower Lobe Pneumonia - Possible Aspiration
Syncope on May 07, 2023
Orthostatic Hypotension -- likely from sedating
medications vs. vasovagal syncope
Chronic Obstructive Pulmonary Disease without
Acute Exacerbation
Hyponatremia
Chronic Right Lower Extremity Wound
Osteonecrosis of the Jaw (had infection of jaw
and under about 2-3 years ago after radiation at
[facility] for his cancer, needing bone graft
from leg) with Associated Chronic Pain
Oral Cancer
Peripheral Artery Disease status post right
lower extremity bypass surgery
Chronic Pain Syndrome
Chronic Opioid Dependence
Chronic Thrombocytosis
Moderate protein calorie malnutrition
Diet Other diet
Additional Diets Pureed Diet with Thin Liquids
Activity As tolerated
Instructions: Pneumonia in adults
Dysphagia
Orthostatic hypotension
Pneumonia, Adult (DC)
Orthostatic Hypotension (DC)
Dysphagia (DC)
Pneumonia
Stand-Alone Forms:
Changes to Home Medications: Yes
Discharge Medications:
DC Medications w/original date entered in [employer]
morphine 15 mg immediate release tablet 7.5 - 15 mg PO Q4H PRN severe pain 06/15/20
gabapentin 300 mg capsule 300 mg PO TID Pain 09/09/21
sennosides 8.6 mg tablet (Senna Laxative) 8.6 mg PO DAILY Supplement 09/09/21
lorazepam 1 mg tablet 1 mg PO BID PRN anxiety 09/11/21
morphine 30 mg tablet,extended release 30 mg PO BID Pain 11/05/21
hydroxyzine HCl 25 mg tablet 25 mg PO Q8H PRN anxiety 05/04/23
amoxicillin 875 mg-potassium clavulanate 125 mg tablet 1 tab PO Q12H 5 days #10 tabs 05/07/23
cyanocobalamin (vitamin B-12) 1,000 mcg tablet 1,000 mcg PO DAILY #30 tabs 05/07/23
doxycycline hyclate 100 mg tablet 100 mg PO BID 4 days #8 tabs 05/07/23
folic acid 1 mg tablet 1 mg PO DAILY #30 tabs 05/07/23
nicotine 14 mg/24 hr daily transdermal patch 14 mg transdermal DAILY #28 ea 05/07/23
thiamine HCl (vitamin B1) 100 mg tablet 100 mg PO DAILY #30 tabs 05/07/23
Home Medication Changes
Amoxicillin-Pot Clavulanate, Vitamin B12, Doxycycline, Folic Acid, Nicotine Patch, and Thiamine are all new medications.
Dilaudid and Bactrim discontinued.
Pending Results: Yes
Additional Pending Results:
Final results of blood cultures from hospitalization.
Total time spent discharging patient (in min): 38
[2023-05-07 17:18] LABS: Troponin I < 0.012 ng/ml
--- NOTE | 2023-05-09 21:55 | W.DCSUMMARY ---
Discharge Summary
Discharge Data
Date of Admission: 05/05/23
Date of Discharge: 05/07/23
Total time spent discharging patient (in min): 38
-
Pending Results: Yes
Additional Pending Results:
Final results of blood cultures from hospitalization
Hospital Course
72 y/o male with past medical history significant for osteonecrosis of the jaw with history of head and neck cancer needing radiation a couple of years back resulting in infection in his jaw bone, ASCVD and COPD who presented to the [facility] Department complaining of general failure to thrive. Patient was started on treatment for right lower lobe pneumonia with possible aspiration, and he was continued on antibiotics.
Hematology was consulted for patient's thrombocytosis, and their impression was that this can be seen in chronic inflammation/infection, they ordered some tests and the impression that patient will likely need outpatient hematology follow-up to
review results and plan further workup if needed. Patient was initially placed on an IDDSI 5 (minced and moist) diet, but later on video swallow testing, it was found that it would be unsafe with high risk of aspiration, even for oral medications,
and speech therapist recommended strict NPO. Hospitalist discussed with patient and his about the risks of continuing to eat or drink anything by mouth, including complications such as pneumonitis, pneumonia, respiratory failure and even .
Gastroenterology was consulted for possible PEG tube evaluation but patient adamantly refused any tube feeding, understood the risks of continuing a solid diet and intended to continue eating as usual. On May 07, 2023, patient had transient loss
of consciousness associated with orthostatic hypotension when nurse got him up at the side of the bed to urinate in a urinal. Later it was determined that most likely from sedating medications that patient received the night before and possibly a
vasovagal syncopal episode, his electrocardiogram and troponins and echocardiogram made a cardiac etiology unlikely. On echocardiogram he was noted have higher pulmonary artery pressures however, but his right ventricle had normal systolic function
and his tricuspid regurgitation was same as prior. Later in the day on May 07, 2023, patient was observed to be walking around his room and hallway without any issues, was awake and alert and coherent, and he insisted to go home. Hospitalist met
patient's in patient's room and explained the risk of continuing oral intake, she understood and hospitalist also advised of what signs to look for in aspiration. Patient insisted on being discharged and was asymptomatic and functioning well at
discharge.
Discharge Plan
-
Patient Disposition: Home (Routine Discharge)
Discharge Diagnosis/Procedures: Right Lower Lobe Pneumonia - Possible Aspiration
Syncope on May 07, 2023
Orthostatic Hypotension -- likely from sedating medications vs. vasovagal syncope
Chronic Obstructive Pulmonary Disease without Acute Exacerbation
Hyponatremia
Chronic Right Lower Extremity Wound
Osteonecrosis of the Jaw (had infection of jaw and under about 2-3 years ago after radiation at [facility] for his cancer, needing bone graft from leg) with Associated Chronic Pain
Oral Cancer
Peripheral Artery Disease status post right lower extremity bypass surgery
Chronic Pain Syndrome
Chronic Opioid Dependence
Chronic Thrombocytosis
Moderate protein calorie malnutrition
Condition: Fair
Diet: Other diet
Additional Diets: Pureed Diet with Thin Liquids
Activity: As tolerated
Activity Restrictions/Additional Instructions:
It is best to wean off sedating medications (e.g. Morphine) to as much of an extent as possible.
Wound Care Instructions
R lateral lower leg: clean with soap and water, Solosite(hydrogel) gel to base of wound followed by gauze, abd pad and xavi change daily and prn drainage.
Tubigrip E or F to R leg knee high daily, can remove at bedtime.
leg elevation when sitting
protein in diet to help with wound healing
smoking cessation to help with wound healing
Follow up at wound care center call for an appointment.
Instructions: Pneumonia in adults, Dysphagia, Orthostatic hypotension, Pneumonia, Adult (DC), Orthostatic Hypotension (DC), Dysphagia (DC), Pneumonia
Referrals:
Werner Hansen MD [Family Provider] - in less than 1 week (Hospital Follow-up. Significant dysphagia - speech recommended strict NPO during hospitalization however patient insists that he keep eating and drinking as usual.)
Pat Ritchie MD [Active] - in one to two weeks (Thrombocytosis)
Kamaljit Drake MD [Active] - (call GI office if would like to proceed with peg tube)
Broderick Moreno MD [Active] - in less than 1 week
Additional Discharge Medication Instructions: Amoxicillin-Pot Clavulanate, Vitamin B12, Doxycycline, Folic Acid, Nicotine Patch, and Thiamine are all new medications.
Dilaudid and Bactrim discontinued.
Prescriptions:
New
doxycycline hyclate 100 mg tablet
100 mg PO BID 4 Days Qty: 8 0RF
amoxicillin-pot clavulanate 875-125 mg tablet
1 tab PO Q12H 5 Days Qty: 10 0RF
folic acid 1 mg Tablet
1 mg PO DAILY Qty: 30 0RF
nicotine 14 mg/24 hr Patch 24 Hour
14 mg transdermal DAILY Qty: 28 0RF
cyanocobalamin (vitamin B-12) 1,000 mcg Tablet
1,000 mcg PO DAILY Qty: 30 0RF
thiamine HCl (vitamin B1) 100 mg Tablet
100 mg PO DAILY Qty: 30 0RF
Continued
morphine 15 MG tablet
7.5 - 15 mg PO Q4H PRN (Reason: severe pain)
Patient Comments:
05/04/23: last filled 04/02/23, 60 tabs for 10 days from [id number]
sennosides [Senna Laxative] 8.6 mg Tablet
8.6 mg PO DAILY
gabapentin 300 mg Capsule
300 mg PO TID
lorazepam 1 mg Tablet
1 mg PO BID PRN (Reason: anxiety)
Patient Comments:
05/04/2023: last filled 01/22/23, 60 tabs for 30 days from [id number]
morphine 30 mg tablet extended release
30 mg PO BID
Patient Comments:
05/04/2023: last filled 03/09/22, 60 tabs for 30 days from [id number]
hydroxyzine HCl 25 mg tablet
25 mg PO Q8H PRN (Reason: anxiety)
Discontinued
sulfamethoxazole-trimethoprim 800-160 mg tablet
1 tab PO BID
hydromorphone 2 mg Tablet
2 mg PO Q6H PRN (Reason: wound vac mike)
Patient Comments:
05/04/2023: last filled 11/08/21, 5 tabs for 2 days from [id number]
Discharge Orders:
Discharge Patient (As Directed); Ordered 05/07/23
Ordered By: Guy Horton
Discharge Date and Time
Discharge Date/Time: 05/07/23 18:23
Print Language: THAI
[2023-05-12 08:57] LABS: JAK2 Qual Mutation by PCR Not Detected; JAK2-PCR Source Whole Blood
== END 2023-05-07 18:23 | disposition home or self-care (01) | DRG 178 ==
LOC: 4 WEST ACU 01:44
PROVIDERS: Emergency Medicine; Nurse Practitioner Family; Physician Assistant; ADMITTING PHYSICIAN Hospitalist; ATTENDING PHYSICIAN Hospitalist; CONSULT PHYSICIAN Internal Medicine Gastroenterology; CONSULT PHYSICIAN Internal Medicine Hematology & Oncology; EMERGENCY PHYSICIAN Emergency Medicine; FAMILY PHYSICIAN Family Medicine
DX: J69.0 Pneumonitis due to inhalation of food and vomit (principal); E44.0 Moderate protein-calorie malnutrition; E87.1 Hypo-osmolality and hyponatremia; F11.20 Opioid dependence, uncomplicated; M87.38 Other secondary osteonecrosis, other site; Z68.1 Body mass index [BMI] 19.9 or less, adult; J44.89 Other specified chronic obstructive pulmonary disease; G89.4 Chronic pain syndrome; E78.00 Pure hypercholesterolemia, unspecified; R68.84 Jaw pain; F41.1 Generalized anxiety disorder; I10 Essential (primary) hypertension; M19.90 Unspecified osteoarthritis, unspecified site; E61.1 Iron deficiency; D75.838 Other thrombocytosis; K21.9 Gastro-esophageal reflux disease without esophagitis; R13.13 Dysphagia, pharyngeal phase; F17.210 Nicotine dependence, cigarettes, uncomplicated; I25.10 Atherosclerotic heart disease of native coronary artery without angina pectoris; R62.7 Adult failure to thrive; F32.A Depression, unspecified; I73.9 Peripheral vascular disease, unspecified; Z88.8 Allergy status to other drugs, medicaments and biological substances; Z85.818 Personal history of malignant neoplasm of other sites of lip, oral cavity, and pharynx; Z92.3 Personal history of irradiation; Z96.659 Presence of unspecified artificial knee joint; Z98.1 Arthrodesis status; Z87.19 Personal history of other diseases of the digestive system; Z87.01 Personal history of pneumonia (recurrent); I95.1 Orthostatic hypotension
CPT/HCPCS: 71046; 74230; 80048; 80053; 81270; 82077; 82140; 82607; 82668; 82728; 82746; 82962; 83540; 83550; 83605; 83735; 84100; 84145; 84443; 84484; 85025; 85027; 87040; 92526; 92610; 92611; 93005; 93306; 94640; 97116; 97162; 97166; 99285; 99406

== ENCOUNTER → 2023-05-19 13:51 | Outpatient (REF) | payer OTHER, SELFPAY | LOC: WOUND 13:51 | PROVIDERS: ATTENDING PHYSICIAN Surgery; FAMILY PHYSICIAN Family Medicine | DX: T81.31XA Disruption of external operation (surgical) wound, not elsewhere classified, initial encounter (principal); Y83.8 Other surgical procedures as the cause of abnormal reaction of the patient, or of later complication, without mention of misadventure at the time of the procedure; L97.812 Non-pressure chronic ulcer of other part of right lower leg with fat layer exposed; I73.9 Peripheral vascular disease, unspecified; L08.9 Local infection of the skin and subcutaneous tissue, unspecified; M27.2 Inflammatory conditions of jaws; F10.11 Alcohol abuse, in remission; I10 Essential (primary) hypertension; I87.2 Venous insufficiency (chronic) (peripheral); F17.210 Nicotine dependence, cigarettes, uncomplicated | CPT/HCPCS: 99212 ==

== ENCOUNTER → 2023-05-25 10:26 | Outpatient (REF) | payer OTHER, SELFPAY | LOC: RAD 10:26 | PROVIDERS: ATTENDING PHYSICIAN Surgery Vascular Surgery; FAMILY PHYSICIAN Family Medicine | DX: I73.9 Peripheral vascular disease, unspecified (principal) | CPT/HCPCS: 93922; 93925 ==

== ENCOUNTER → 2023-06-02 10:49 | Outpatient (REF) | payer OTHER, SELFPAY | LOC: WOUND 10:49 | PROVIDERS: ATTENDING PHYSICIAN Surgery; FAMILY PHYSICIAN Family Medicine | DX: T81.31XA Disruption of external operation (surgical) wound, not elsewhere classified, initial encounter (principal); Y83.8 Other surgical procedures as the cause of abnormal reaction of the patient, or of later complication, without mention of misadventure at the time of the procedure; L97.812 Non-pressure chronic ulcer of other part of right lower leg with fat layer exposed; I73.9 Peripheral vascular disease, unspecified; L08.9 Local infection of the skin and subcutaneous tissue, unspecified; M27.2 Inflammatory conditions of jaws; F10.11 Alcohol abuse, in remission; I10 Essential (primary) hypertension; I87.2 Venous insufficiency (chronic) (peripheral) | CPT/HCPCS: 99213 ==

== ENCOUNTER → 2023-06-16 11:02 | Outpatient (REF) | payer OTHER, SELFPAY | LOC: WOUND 11:02 | PROVIDERS: ATTENDING PHYSICIAN Surgery; FAMILY PHYSICIAN Family Medicine | DX: T81.31XA Disruption of external operation (surgical) wound, not elsewhere classified, initial encounter (principal); Y83.8 Other surgical procedures as the cause of abnormal reaction of the patient, or of later complication, without mention of misadventure at the time of the procedure; L97.812 Non-pressure chronic ulcer of other part of right lower leg with fat layer exposed; I73.9 Peripheral vascular disease, unspecified; L08.9 Local infection of the skin and subcutaneous tissue, unspecified; M27.2 Inflammatory conditions of jaws; T14.8XXA Other injury of unspecified body region, initial encounter; X58.XXXA Exposure to other specified factors, initial encounter; F10.11 Alcohol abuse, in remission; I10 Essential (primary) hypertension; I87.2 Venous insufficiency (chronic) (peripheral); F17.210 Nicotine dependence, cigarettes, uncomplicated | CPT/HCPCS: 11042 ==

== ENCOUNTER 2023-07-09 13:04 | Outpatient (RCR) | payer OTHER, SELFPAY | END 2023-07-09 23:59 | disposition home or self-care (01) | LOC: RST 13:04 | PROVIDERS: ATTENDING PHYSICIAN Family Medicine | DX: R13.12 Dysphagia, oropharyngeal phase (principal); Z85.819 Personal history of malignant neoplasm of unspecified site of lip, oral cavity, and pharynx | CPT/HCPCS: 92526; 92610 ==

== ENCOUNTER → 2023-07-14 10:55 | Outpatient (REF) | payer OTHER, SELFPAY | LOC: WOUND 10:55 | PROVIDERS: ATTENDING PHYSICIAN Surgery | DX: T81.31XA Disruption of external operation (surgical) wound, not elsewhere classified, initial encounter (principal); Y83.8 Other surgical procedures as the cause of abnormal reaction of the patient, or of later complication, without mention of misadventure at the time of the procedure; L97.812 Non-pressure chronic ulcer of other part of right lower leg with fat layer exposed; I73.9 Peripheral vascular disease, unspecified; L08.9 Local infection of the skin and subcutaneous tissue, unspecified; M27.2 Inflammatory conditions of jaws; F10.11 Alcohol abuse, in remission; I10 Essential (primary) hypertension; I87.2 Venous insufficiency (chronic) (peripheral); F17.210 Nicotine dependence, cigarettes, uncomplicated | CPT/HCPCS: 11042 ==

== ENCOUNTER 2023-08-06 14:27 | Outpatient (RCR) | payer OTHER, SELFPAY | END 2023-08-06 23:59 | disposition home or self-care (01) | LOC: RST 14:27 | PROVIDERS: ATTENDING PHYSICIAN Family Medicine | DX: R13.12 Dysphagia, oropharyngeal phase (principal); Z85.819 Personal history of malignant neoplasm of unspecified site of lip, oral cavity, and pharynx; J18.9 Pneumonia, unspecified organism | CPT/HCPCS: 92526 ==

== ENCOUNTER → 2023-08-21 14:28 | Outpatient (REF) | payer OTHER, SELFPAY | LOC: WOUND 14:28 | PROVIDERS: ATTENDING PHYSICIAN Surgery; FAMILY PHYSICIAN Family Medicine | DX: T81.31XA Disruption of external operation (surgical) wound, not elsewhere classified, initial encounter (principal); L97.812 Non-pressure chronic ulcer of other part of right lower leg with fat layer exposed; I73.9 Peripheral vascular disease, unspecified; L08.9 Local infection of the skin and subcutaneous tissue, unspecified; M27.2 Inflammatory conditions of jaws; T14.8XXA Other injury of unspecified body region, initial encounter; F10.11 Alcohol abuse, in remission; I10 Essential (primary) hypertension; I87.2 Venous insufficiency (chronic) (peripheral); Y83.8 Other surgical procedures as the cause of abnormal reaction of the patient, or of later complication, without mention of misadventure at the time of the procedure; X58.XXXA Exposure to other specified factors, initial encounter | CPT/HCPCS: 11042 ==

== ENCOUNTER 2023-09-02 13:53 | Outpatient (RCR) | payer OTHER, SELFPAY | END 2023-09-02 23:59 | disposition home or self-care (01) | LOC: RST 13:53 | PROVIDERS: ATTENDING PHYSICIAN Family Medicine | DX: R13.12 Dysphagia, oropharyngeal phase (principal); J18.9 Pneumonia, unspecified organism; Z85.819 Personal history of malignant neoplasm of unspecified site of lip, oral cavity, and pharynx | CPT/HCPCS: 92526 ==

== ENCOUNTER → 2023-09-18 12:09 | Outpatient (REF) | payer OTHER, SELFPAY | LOC: WOUND 12:09 | PROVIDERS: ATTENDING PHYSICIAN Surgery; FAMILY PHYSICIAN Family Medicine | DX: T81.31XA Disruption of external operation (surgical) wound, not elsewhere classified, initial encounter (principal); L97.812 Non-pressure chronic ulcer of other part of right lower leg with fat layer exposed; I73.9 Peripheral vascular disease, unspecified; L08.9 Local infection of the skin and subcutaneous tissue, unspecified; M27.2 Inflammatory conditions of jaws; I87.2 Venous insufficiency (chronic) (peripheral); F10.11 Alcohol abuse, in remission; F17.210 Nicotine dependence, cigarettes, uncomplicated; Y83.8 Other surgical procedures as the cause of abnormal reaction of the patient, or of later complication, without mention of misadventure at the time of the procedure | CPT/HCPCS: 11042 ==

== ENCOUNTER 2023-10-01 13:02 | Outpatient (RCR) | payer OTHER, SELFPAY | END 2023-10-01 23:59 | disposition home or self-care (01) | LOC: RST 13:02 | PROVIDERS: ATTENDING PHYSICIAN Family Medicine | DX: R13.12 Dysphagia, oropharyngeal phase (principal); Z85.819 Personal history of malignant neoplasm of unspecified site of lip, oral cavity, and pharynx | CPT/HCPCS: 92526 ==

== ENCOUNTER → 2023-10-19 11:11 | Outpatient (REF) | payer OTHER, SELFPAY | LOC: WOUND 11:11 | PROVIDERS: ATTENDING PHYSICIAN Surgery; FAMILY PHYSICIAN Family Medicine | DX: T81.31XA Disruption of external operation (surgical) wound, not elsewhere classified, initial encounter (principal); Y83.8 Other surgical procedures as the cause of abnormal reaction of the patient, or of later complication, without mention of misadventure at the time of the procedure; L97.812 Non-pressure chronic ulcer of other part of right lower leg with fat layer exposed; I39 Endocarditis and heart valve disorders in diseases classified elsewhere; L08.9 Local infection of the skin and subcutaneous tissue, unspecified; F17.210 Nicotine dependence, cigarettes, uncomplicated; M27.2 Inflammatory conditions of jaws; F10.11 Alcohol abuse, in remission; I10 Essential (primary) hypertension; I87.2 Venous insufficiency (chronic) (peripheral) | CPT/HCPCS: 11042 ==

== ENCOUNTER 2023-10-28 12:55 | Outpatient (RCR) | payer OTHER, SELFPAY | END 2023-10-28 23:59 | disposition home or self-care (01) | LOC: RST 12:55 | PROVIDERS: ATTENDING PHYSICIAN Family Medicine | DX: R13.12 Dysphagia, oropharyngeal phase (principal); Z85.819 Personal history of malignant neoplasm of unspecified site of lip, oral cavity, and pharynx; Z87.01 Personal history of pneumonia (recurrent) | CPT/HCPCS: 92526 ==

== ENCOUNTER 2023-11-10 06:26 | Emergency (ER) | payer OTHER, SELFPAY ==
[2023-11-10 06:29] VITALS: BP 150/88
--- NOTE | 2023-11-10 06:38 | ED.GENMED ---
History of Present Illness
General
Chief Complaint: Head Injury
Source: patient
Exam Limitations: none
Time Seen by Provider: 11/10/23 06:33
History of Present Illness
History of Present Illness:
See MDM
Past History
Past History
ED Past Medical History: Cancer, COPD, HTN, Hypercholesterolemia, Psychiatric (Generalized anxiety disorder) and Other (Arthritis, Ulcers)
ED Past Surgical History: Orthopedic (Knee replacement, spinal fusion)
Social History
Tobacco: Smoker
Alcohol: Daily
Drug: None
Personal:
Living: with family
Family History
Family History: CAD
Phy Exam
Physical Exam
Physical Exam:
See MDM
Course
Orders/Labs/Results
Orders:
Orders
11/10/23 06:36
CT Head W/o Iv Contrast Urgent
Comment:
Reason For Exam: fall, head injury
Vital Signs
Initial and Last Documented VS:
Initial Vital Signs
Temp Pulse Resp BP Pulse Ox
98.1 F 98 24 150/88 95
11/10/23 06:29 11/10/23 06:29 11/10/23 06:29 11/10/23 06:29 11/10/23 06:29
Last Documented Vital Signs
Temp Pulse Resp BP Pulse Ox
98.1 F 84 20 139/85 97
11/10/23 06:29 11/10/23 08:15 11/10/23 08:15 11/10/23 08:15 11/10/23 08:15
Procedures
Laceration Closure
Superior Anterior Scalp:
Status of Wound: clean
Size of Wound in cm: 12
Description of Wound Edges: sharp and flap-well vascularized
Preparation: cleaned with soap & water
Revision/Debridement: routine- no revision
Wound exploration: explored to base- no FB
Type of Closure: single layer closure
Skin Closure Material: skin antonio
Additional information:
3 antonio placed
MDM/Problems Addressed
Differential Diagnosis Includes:
HPI and MDM Narrative:
73-year-old male presenting for evaluation of head injury after a trip and fall. Patient states he tripped he fell and hit his head on a marble and table. Patient presents with a large laceration to the top of his scalp. He states his son placed
new skin on the area to stop the bleeding. Patient denies any significant headache. He is not on blood thinners. He states his tetanus is up-to-date.
Given the injury and age, will obtain CT head
Physical exam
General: Well appearing and non-toxic
HEENT: protecting airway
Neck: appears supple
CV: No evidence of cyanosis
Resp: No accessory muscle use
Abd: Non-distended
Extremities: No deformities
Neuro: alert
Psych: Normal affect
Skin: 12 cm laceration to top of scalp which is well-approximated. No active bleeding
Problems Addressed including Acute and Chronic Conditions affecting care:
1. Head injury
Acuity: acute
Prognosis: stable
Details: Will obtain CT head. Will clean wound and place antonio
Updates
CT head negative. I did place 3 antonio to tack the wound together. It is already well-approximated. Patient states he is already on an antibiotic.
Differential Diagnosis (but not limited to): Intracranial hemorrhage, concussion, laceration
Testing considered: CT neck but he denies neck pain
Drug therapy (if applicable): OTC meds, please see d/c instruction regarding Rx drugs
Amount and/or Complexity of Data Reviewed
Clinical info obtained from: Patient
External data reviewed: N/A
Labs I independently reviewed (but not limited to): N/A
Radiology: The CT scan was personally and independently reviewed. In addition, official CT report reviewed.
Pulse Ox: not hypoxic
EKG independently reviewed: N/A
[employer]: N/A
Critical Care: N/A
Risk of Complication:
Social Determinants of health: Good social support
Discussed with other providers: N/A
Escalation of Care includes Admit/Obs: After being observed in the Emergency Department, pt stable for discharge.
Occasional wrong word or 'sound a like' substitutions may have occurred due to the inherent limitations of voice recognition software. Read the chart carefully and recognize, using context, where substitutions have occurred.
*Critical Care Note
Total Time (30-74mins, 75-104mins- exclusive of procedures): Not Applicable
ED Attending Note
-
Portions of this chart may have been created with voice recognition software.� Occasional wrong word or��sound alike� substitutions may have occurred due to the inherent limitations of voice recognition software.
Discharge Plan
Departure
Patient Disposition: Home (Routine Discharge)
Date of Disposition: 11/10/23
Time of Disposition: 08:27
Patient with high blood pressure during this ER visit?: Yes
Discharge Problem:
Laceration of scalp
Instructions: BLOOD PRESSURE
Prescriptions:
No Action
morphine 15 MG tablet
7.5 - 15 mg PO Q4H PRN (Reason: severe pain)
Patient Comments:
05/04/23: last filled 04/02/23, 60 tabs for 10 days from [facility]#[id number]
sennosides [Senna Laxative] 8.6 mg Tablet
8.6 mg PO DAILY
gabapentin 300 mg Capsule
300 mg PO TID
lorazepam 1 mg Tablet
1 mg PO BID PRN (Reason: anxiety)
Patient Comments:
05/04/2023: last filled 01/22/23, 60 tabs for 30 days from [id number]
morphine 30 mg tablet extended release
30 mg PO BID
Patient Comments:
05/04/2023: last filled 03/09/22, 60 tabs for 30 days from [facility]#[id number]
hydroxyzine HCl 25 mg tablet
25 mg PO Q8H PRN (Reason: anxiety)
doxycycline hyclate 100 mg tablet
100 mg PO BID 4 Days Qty: 8 0RF
amoxicillin-pot clavulanate 875-125 mg tablet
1 tab PO Q12H 5 Days Qty: 10 0RF
folic acid 1 mg Tablet
1 mg PO DAILY Qty: 30 0RF
nicotine 14 mg/24 hr Patch 24 Hour
14 mg transdermal DAILY Qty: 28 0RF
cyanocobalamin (vitamin B-12) 1,000 mcg Tablet
1,000 mcg PO DAILY Qty: 30 0RF
thiamine HCl (vitamin B1) 100 mg Tablet
100 mg PO DAILY Qty: 30 0RF
Referrals:
Werner Hansen MD [Family Provider] -
Activity Restrictions/Additional Instructions:
Watch for signs of infection: fever over 100.5', increasing pain, red streaks around wound, swelling, or drainage of pus. If any of these happen, return to ED promptly. Make sure that you take all your antibiotics as directed and finish your
prescription even if you feel better before the bottle is empty
Please have the 3 antonio removed in approximately 7 days.
Interventions
Interventions:
*Risk Screen - Suicide Last Done: 11/10/23 06:29
*General Assessment Last Done: 11/10/23 08:15
*Neglect/Abuse Screening Last Done: 11/10/23 06:29
*ED COVID-19 Vaccine History Last Done: 11/10/23 08:15
ED- Neurological Assessment Last Done: 11/10/23 08:15
ED-Skin Assessment Last Done: 11/10/23 08:15
Discharge Date and Time
Print Language: AMHARIC
[2023-11-10 08:15] VITALS: BP 139/85
== END 2023-11-10 08:28 | disposition home or self-care (01) ==
LOC: EMR 06:26
PROVIDERS: EMERGENCY PHYSICIAN Student in an Organized Health Care Education/Training Program; FAMILY PHYSICIAN Family Medicine
DX: S09.90XA Unspecified injury of head, initial encounter (principal); W01.0XXA Fall on same level from slipping, tripping and stumbling without subsequent striking against object, initial encounter; J44.9 Chronic obstructive pulmonary disease, unspecified; I10 Essential (primary) hypertension; E78.00 Pure hypercholesterolemia, unspecified; F41.1 Generalized anxiety disorder; F17.200 Nicotine dependence, unspecified, uncomplicated
CPT/HCPCS: 99284; 12004; 70450

== ENCOUNTER → 2023-11-16 10:59 | Outpatient (REF) | payer OTHER, SELFPAY | LOC: WOUND 10:59 | PROVIDERS: ATTENDING PHYSICIAN Surgery; FAMILY PHYSICIAN Family Medicine | DX: T81.31XA Disruption of external operation (surgical) wound, not elsewhere classified, initial encounter (principal); Y83.8 Other surgical procedures as the cause of abnormal reaction of the patient, or of later complication, without mention of misadventure at the time of the procedure; L97.812 Non-pressure chronic ulcer of other part of right lower leg with fat layer exposed; I73.9 Peripheral vascular disease, unspecified; L08.9 Local infection of the skin and subcutaneous tissue, unspecified; F17.210 Nicotine dependence, cigarettes, uncomplicated; M27.2 Inflammatory conditions of jaws; F10.11 Alcohol abuse, in remission; I10 Essential (primary) hypertension; I87.2 Venous insufficiency (chronic) (peripheral) | CPT/HCPCS: 11042 ==

== ENCOUNTER → 2023-11-18 10:52 | Outpatient (REF) | payer OTHER, SELFPAY | LOC: RAD 10:52 | PROVIDERS: ATTENDING PHYSICIAN Surgery Vascular Surgery; FAMILY PHYSICIAN Family Medicine | DX: I73.9 Peripheral vascular disease, unspecified (principal) | CPT/HCPCS: 93922; 93925 ==

== ENCOUNTER 2023-11-25 11:59 | Outpatient (RCR) | payer OTHER, SELFPAY | END 2023-12-09 13:06 | disposition home or self-care (01) | LOC: RST 11:59 | PROVIDERS: ATTENDING PHYSICIAN Family Medicine | DX: J18.9 Pneumonia, unspecified organism (principal); Z85.819 Personal history of malignant neoplasm of unspecified site of lip, oral cavity, and pharynx; R13.12 Dysphagia, oropharyngeal phase | CPT/HCPCS: 92526 ==

== ENCOUNTER 2023-12-01 11:32 | Outpatient (RCR) | payer OTHER, SELFPAY ==
[2023-11-24] MEDS: INJECTAFER 265 MG IV (11:53)
[2023-11-24 12:00] VITALS: BMI 21.5
[2023-11-24 12:15] VITALS: BP 163/98
[2023-11-24 12:55] VITALS: BP 152/83
[2023-12-01 11:49] VITALS: BP 147/95
[2023-12-01] MEDS: INJECTAFER 265 MG IV (11:59)
[2023-12-01 12:35] VITALS: BP 152/92
== END 2023-12-02 08:27 | disposition home or self-care (01) ==
LOC: OID 11:32
PROVIDERS: ATTENDING PHYSICIAN Family Medicine
DX: D50.0 Iron deficiency anemia secondary to blood loss (chronic) (principal); D72.829 Elevated white blood cell count, unspecified; J43.1 Panlobular emphysema
CPT/HCPCS: 96365; J1439

== ENCOUNTER → 2023-12-14 10:54 | Outpatient (REF) | payer OTHER, SELFPAY | LOC: WOUND 10:54 | PROVIDERS: ATTENDING PHYSICIAN Surgery; FAMILY PHYSICIAN Family Medicine | DX: T81.31XA Disruption of external operation (surgical) wound, not elsewhere classified, initial encounter (principal); L97.812 Non-pressure chronic ulcer of other part of right lower leg with fat layer exposed; I73.9 Peripheral vascular disease, unspecified; L08.9 Local infection of the skin and subcutaneous tissue, unspecified; F17.210 Nicotine dependence, cigarettes, uncomplicated; M27.2 Inflammatory conditions of jaws; F10.11 Alcohol abuse, in remission; I10 Essential (primary) hypertension; I87.2 Venous insufficiency (chronic) (peripheral); Y83.8 Other surgical procedures as the cause of abnormal reaction of the patient, or of later complication, without mention of misadventure at the time of the procedure | CPT/HCPCS: 11042 ==

== ENCOUNTER → 2024-04-12 10:52 | Outpatient (REF) | payer OTHER, SELFPAY | LOC: WOUND 10:52 | PROVIDERS: ATTENDING PHYSICIAN Surgery; FAMILY PHYSICIAN Family Medicine | DX: T81.31XA Disruption of external operation (surgical) wound, not elsewhere classified, initial encounter (principal); L97.812 Non-pressure chronic ulcer of other part of right lower leg with fat layer exposed; I73.9 Peripheral vascular disease, unspecified; L08.9 Local infection of the skin and subcutaneous tissue, unspecified; F17.210 Nicotine dependence, cigarettes, uncomplicated; M27.2 Inflammatory conditions of jaws; T14.8XXA Other injury of unspecified body region, initial encounter; F10.11 Alcohol abuse, in remission; I10 Essential (primary) hypertension; I87.2 Venous insufficiency (chronic) (peripheral); Y83.8 Other surgical procedures as the cause of abnormal reaction of the patient, or of later complication, without mention of misadventure at the time of the procedure; X58.XXXA Exposure to other specified factors, initial encounter | CPT/HCPCS: 97597 ==

== ENCOUNTER → 2024-06-16 10:55 | Outpatient (REF) | payer OTHER, SELFPAY | LOC: WOUND 10:55 | PROVIDERS: ATTENDING PHYSICIAN Surgery; FAMILY PHYSICIAN Family Medicine | DX: T81.31XA Disruption of external operation (surgical) wound, not elsewhere classified, initial encounter (principal); L97.812 Non-pressure chronic ulcer of other part of right lower leg with fat layer exposed; I73.9 Peripheral vascular disease, unspecified; L08.9 Local infection of the skin and subcutaneous tissue, unspecified; M27.2 Inflammatory conditions of jaws; F10.11 Alcohol abuse, in remission; I10 Essential (primary) hypertension; I87.2 Venous insufficiency (chronic) (peripheral); Y83.8 Other surgical procedures as the cause of abnormal reaction of the patient, or of later complication, without mention of misadventure at the time of the procedure | CPT/HCPCS: 11042 ==

== ENCOUNTER → 2024-08-25 11:24 | Outpatient (REF) | payer OTHER, SELFPAY | LOC: WOUND 11:24 | PROVIDERS: ATTENDING PHYSICIAN Surgery; FAMILY PHYSICIAN Family Medicine | DX: T81.31XA Disruption of external operation (surgical) wound, not elsewhere classified, initial encounter (principal); L97.812 Non-pressure chronic ulcer of other part of right lower leg with fat layer exposed; I73.9 Peripheral vascular disease, unspecified; L08.9 Local infection of the skin and subcutaneous tissue, unspecified; F17.210 Nicotine dependence, cigarettes, uncomplicated; M27.2 Inflammatory conditions of jaws; F10.11 Alcohol abuse, in remission; I10 Essential (primary) hypertension; I87.2 Venous insufficiency (chronic) (peripheral); Y83.8 Other surgical procedures as the cause of abnormal reaction of the patient, or of later complication, without mention of misadventure at the time of the procedure | CPT/HCPCS: 11042 ==

== ENCOUNTER → 2024-11-28 12:56 | Outpatient (REF) | payer OTHER, SELFPAY | LOC: DHVS 12:56 | PROVIDERS: ATTENDING PHYSICIAN Surgery Vascular Surgery; FAMILY PHYSICIAN Family Medicine | DX: I73.9 Peripheral vascular disease, unspecified (principal) | CPT/HCPCS: 93922; 93925 ==

== ENCOUNTER 2024-12-22 13:26 | Outpatient (REF) | payer OTHER, SELFPAY | END 2024-12-22 23:59 | disposition home or self-care (01) | LOC: WOUND 13:26 | PROVIDERS: ATTENDING PHYSICIAN Surgery; FAMILY PHYSICIAN Family Medicine | DX: T81.31XA Disruption of external operation (surgical) wound, not elsewhere classified, initial encounter (principal); L97.812 Non-pressure chronic ulcer of other part of right lower leg with fat layer exposed; I73.9 Peripheral vascular disease, unspecified; L08.9 Local infection of the skin and subcutaneous tissue, unspecified; F17.210 Nicotine dependence, cigarettes, uncomplicated; M27.2 Inflammatory conditions of jaws; F10.11 Alcohol abuse, in remission; I10 Essential (primary) hypertension; I87.2 Venous insufficiency (chronic) (peripheral); Y83.8 Other surgical procedures as the cause of abnormal reaction of the patient, or of later complication, without mention of misadventure at the time of the procedure | CPT/HCPCS: 97597 ==